=== PATIENT | male | born 1965 | race Caucasian/White ===

== ENCOUNTER 2024-01-28 17:14 | Inpatient (IN) | payer OTHER, SELFPAY ==
[2024-01-28] VITALS (24 sets, daily range): BP systolic 140–164; BP diastolic 100–114; PULSE 80–100; RESP 16; TEMP 36.8; O2SAT 86–100
--- NOTE | ~2024-01-28 | XR_ITS ---
EXAMINATION: XR chest 1V portable DATE: 01/31/2024 07:44 INDICATION: Pneumonia. Septic shock. TECHNIQUE: A single frontal view of the chest was obtained. COMPARISON: Chest single view 01/30/2024, CT abdomen and pelvis 01/28/2024 FINDINGS: The lung volumes are small. There is mild atelectasis in the lower lung zones. No pleural e ffusion or pneumothorax. The heart size is normal. IMPRESSION: 1. Small lung volumes with mild atelectasis in the lower lung zones. Reviewed, dictated and finalized at location E.
--- NOTE | ~2024-01-28 | CT_ITS ---
EXAMINATION: CT brain wo con DATE: 02/01/2024 22:07 INDICATION: garbled speech word salad . TECHNIQUE: Computed tomography (CT) of the head was performed without intravenous contrast. The mA wa s adjusted according to patient size. Iterative reconstruction technique was employed. The dose-lengt h product was 605.33 mGy-cm. COMPARISON: 03/28/2018. FINDINGS: No acute intracranial hemorrhage or extra-axial fluid collection. No hydrocephalus, mass, or herniation. No acute ischemic infarct. Unremarkable dural venous sinus attenuation. No acute osseous abnormality. The aerated spaces are clear. Mild atrophy and chronic white matter change. Atherosclerotic intracranial calcification. IMPRESSION: No acute intracranial process. Reviewed, dictated and finalized at location K.
--- NOTE | ~2024-01-28 | XR_ITS ---
XR chest 1V portable Ordering provider: Jose E Pastor MD History: 58 years Male with . tachycardia . Comparison: March 28, 2018 FINDINGS: MEDIASTINUM: The cardiac silhouette is not enlarged. Slight widening of the superior mediastinum. May be vascular. LUNGS: No effusions or pneumothorax. Opacification and the lung bases suggestive of pneumonia. OTHER: No free air under the diaphragm. IMPRESSION: Bilateral basal pneumonia. Reviewed, dictated and finalized at location A. IMPRESSION: Bilateral basal pneumonia.
--- NOTE | ~2024-01-28 | CT_ITS ---
CT abdomen pelvis w con Ordering provider: Liza Nguyen PA-C History: 58 years Male with . abd pain, flank pain, hx kidney stones . Comparison: March 28, 20002017 Technique: CT abdomen and pelvis with IV and without oral contrast. Radiation reduction technique utilized. DLP 532.9mGy. Findings: VISUALIZED LOWER CHEST: Atelectatic changes in the right lung base. Pneumonitis is not excluded. UPPER ABDOMINAL ORGANS: Liver: Normal. Gallbladder: Normal. Spleen: Normal. Stomach/duodenum: Slightly thickened wall of the stomach. Pancreas: Normal. Adrenals: Normal. Kidneys: Small hypodensity in the right kidney upper pole most likely cyst. Left renal cyst in the le ft kidney upper pole. PELVIC ORGANS: The bladder shows thickened wall. Suprapubic catheter is noted. BOWEL AND MESENTERY: Colon: No evidence of diverticulitis.. Fecal material is impacted in the colon suggestive of constipa tion. No evidence of appendicitis. Small Bowel: Normal. No obstruction. Peritoneum/mesentery: No free air or free fluid. No mesenteric lymphadenopathy. RETROPERITONEUM: Mild atheromatous disease of the abdominal aorta. No retroperitoneal lymphadenopat hy. IVC filter is noted. MUSCULOSKELETAL: Superficial soft tissues: The superficial soft tissues are normal. Device is projected over the left side of the abdomen Bones: Age appropriate degenerative changes of the spine. Bilateral sacroiliacs. Bilateral hip osteoa rthritic changes. IMPRESSION: 1. Right basilar atelectatic changes. 2. Hypodensity in the right kidney upper pole. Follow-up advised. 3. Thickened wall of the bladder with suprapubic catheter. 4. Constipation. Reviewed, dictated and finalized at location A.
--- NOTE | ~2024-01-28 | US_ITS ---
EXAMINATION: US abdomen limited DATE: 01/31/2024 09:09 INDICATION: Abnormal liver function tests. Hyperbilirubinemia. TECHNIQUE: Multiple grayscale and Doppler ultrasound images of the abdomen were obtained. COMPARISON: CT abdomen and pelvis 01/28/2024 FINDINGS: The pancreas is obscured by bowel gas. The liver is normal without focal lesion. There is n ormal flow in main portal vein. There are gallstones in the gallbladder, which is normal in size. Gal lbladder wall thickening is noted. There is no sonographic Veloz's sign. The common duct is normal a nd measures 2 mm. IMPRESSION: 1. Cholelithiasis. Gallbladder wall thickening may be secondary to chronic cholecystitis, chronic robert er disease, or interstitial edema. Reviewed, dictated and finalized at location E. IMPRESSION: 1. Cholelithiasis. Gallbladder wall thickening may be secondary to chronic chol ecystitis, chronic liver disease, or interstitial edema.
--- NOTE | ~2024-01-28 | XR_ITS ---
EXAMINATION: XR chest 1V portable DATE: 02/01/2024 05:12 INDICATION: Pneumonia. TECHNIQUE: A single frontal view of the chest was obtained. COMPARISON: Chest single view 01/31/2024 FINDINGS: The lung volumes are small. There are airspace opacities in all lung zones bilaterally. No pleural effusion or pneumothorax. The heart size is normal. IMPRESSION: 1. Small lung volumes with worsened diffuse lung disease, consistent with atelectasis versus pneumoni a. Reviewed, dictated and finalized at location E. IMPRESSION: 1. Small lung volumes with worsened diffuse lung disease, consistent with atele ctasis versus pneumonia.
--- NOTE | 2024-01-28 17:50 | ED.MALEGU ---
HPI - Male Genitourinary General Chief complaint: Urogenital-Male Stated complaint: catheter pain Time Seen by Provider: 01/28/24 17:16 Source: patient Mode of arrival: EMS Limitations: no limitations History of Present Illness HPI Narrative: This is a 50-year-old male that presents to the emergency department for abdominal discomfort and vomiting. Ongoing over the last couple of days. The pain is constant in nature, intermittently more severe. Also reports pain around his suprapubic catheter and leaking of urine from his penis. Reports irritation of his scrotum. Reports he does not currently have a urologist. Denies fevers. Related Data Allergies Allergy/AdvReac Type Severity Reaction Status Date / Time duloxetine [From Cymbalta] Allergy Unknown Verified 01/28/24 19:00 hydralazine Allergy Unknown Verified 01/28/24 19:00 hydroxyzine Allergy Unknown Verified 01/28/24 19:00 Review of Systems Review of Systems: CONSTITUTIONAL: Denies fever GASTROINTESTINAL: Reports abdominal pain, nausea, vomiting GENITOURINARY: Reports hematuria. All systems reviewed & are unremarkable except as noted in HPI and below PMFSH Past Medical History Medical History (Updated 01/29/24 @ 00:53 by Liza Nguyen PA-C) History of DVT (deep vein thrombosis) History of hypertension History of paraplegia Surgical History Surgical History (Updated 01/28/24 @ 17:55 by Liza Nguyen PA-C) History of suprapubic catheter Social History Social History (Updated 01/28/24 @ 17:55 by Liza Nguyen PA-C) Substance use: former Exam Narrative: GENERAL: Well-appearing, well-nourished, and in no acute distress. HEAD: Normocephalic, atraumatic. EYES: EOMI. ENT: Nares clear, no rhinorrhea or epistaxis. Mucous membranes moist. Oropharynx without tonsillar hypertrophy exudate or other lesions. CHEST: Clear to auscultation. No respiratory distress. No wheezes rales or rhonchi HEART: Regular rate and rhythm. No murmur heard. Normal peripheral pulses. ABDOMEN: Soft, nondistended, normal active bowel sounds. Tender to palpation throughout the low abdomen, without guarding. Suprapubic catheter with urine leaking around catheter EXTREMITIES: No edema. SKIN: Warm, dry. The scrotum is red and moist with papules in the groin. Stage one sacral decubitus ulcer without surrounding erythema or abnormal drainage NEURO: Alert and oriented x3. PSYCH: Normal mood and affect Course Course Emergency Course: patient updated on his workup and recommendation for admission Consultations Consultation #1: Spoke with Dr. Zhang who accepts admission Date: 01/29/24 Vital Signs Vital signs: Vital Signs Temperature 98.2 F 01/28/24 17:15 Pulse Rate 80 01/28/24 17:15 Respiratory Rate 16 01/28/24 17:15 Blood Pressure 158/100 H 01/28/24 17:15 Pulse Oximetry 100 01/28/24 17:15 Oxygen Delivery Room Air 01/28/24 17:15 Temperature 98.2 F 01/28/24 17:15 Pulse Rate 68 01/29/24 00:28 Respiratory Rate 16 01/29/24 00:28 Blood Pressure 153/110 H 01/28/24 23:01 Pulse Oximetry 96 01/29/24 00:28 Oxygen Delivery Nasal Cannula 01/28/24 23:56 Oxygen Flow Rate 2 01/28/24 23:56 Procedures Catheter Insertion (Urinary) Urinary Catheter 1: Date of insertion: 01/28/24 Reason for placing: Yes (replacing chronic catheter) Reason for placing indwelling catheter: Other ( paraplegia, chronic suprapubic catheter) Patient has the following: history of catheter associated urinary tract infection Bladder scan/ultrasound used before catheterization: No Antiseptic solution prep: Povidone-Iodine Topical anesthesia used: Yes Catheter type/location: Suprapubic Size (Portuguese): 20 Catheter balloon size (mL): 10 Catheter balloon amount: 10 Results: successfully catheterized-immediate flow Procedure performed: without complications MDM - Male Genitourinary M
--- NOTE | 2024-01-28 18:15 | PC.NURSE ---
UNABLE TO PLACE IV AFTER 2 ATTEMPTS. SHERRY GARRIDO AWARE AND WILL ATTEMPT ULTRASOUND IV ACCESS
[2024-01-28 19:01] LABS: Alanine Aminotransferase 17 U/L (6-50); Albumin Level 4.4 g/dL (3.5-5.1); Alkaline Phosphatase 78 U/L (38-126); Anion Gap 8 mmol/L (4-12); Aspartate Amino Transferase 27 U/L (17-59); Bilirubin,Total 0.5 mg/dL (0.2-1.3); Blood Urea Nitrogen 10 mg/dL (9-20); Calcium 8.8 mg/dL (8.4-10.2); Carbon Dioxide 26 mmol/L (22-30); Chloride 108 mmol/L (98-107); Estimated CRCL calculation 158 ml/min; Estimated Glomerular Filt Rate > 60; Glucose 129 mg/dL (65-110); Potassium 4.2 mmol/L (3.4-5.0); Sodium 142 mmol/L (137-145)
--- NOTE | 2024-01-28 19:10 | PC.NURSE ---
REPORT TO DOREEN Salazar RN. AWAITING ULTRASOUND RN TO PLACE IV.
[2024-01-28] MEDS: MORPHINE SULFATE (*CRX) 4 MG/ML INJ IV PUSH (19:44)
[2024-01-28] MEDS: ONDANSETRON INJ 4 MG/2 ML VIAL IV PUSH (19:44)
--- NOTE | 2024-01-28 19:44 | PC.NURSE ---
At time of Morphine being given by this RN patient asked numerous questions such as what is the mg that you just gave me of the morphine, when can I have more,etc. This rn educated the patient to the mg he was being given again, and that it was only ordered as a 1 time dose per the er dr's. Pt then made a comment that Are you sure you gave me all of it, i normally get a different feeling from it and i didnt get it. did you given me the full medication?
[2024-01-28 19:53] LABS: Basophils Percent Auto 0.3 % (0.2-1.2); Eosinophils Absolute Auto 0.1 K/mm3 (0-0.3); Eosinophils Percent Auto 1.3 % (0-4.4); Hematocrit 46.2 % (42.0-52.0); Hemoglobin 13.9 g/dL (14.0-18.0); Immature Granulocyte Absolute 0.02 K/mm3 (0.00-0.031); Immature Granulocyte Percent A 0.2 % (0-0.5); Lymphocytes Absolute Auto 1.07 K/mm3 (0.9-3.2); Lymphocytes Percent Auto 11.1 % (18.3-44.2); Mean Corpuscular HGB Conc 30.1 g/dl (32-36); Mean Corpuscular Hemoglobin 24.5 pg (26-34); Mean Corpuscular Volume 81.3 fl (80-100); Mean Platelet Volume 9.2 fl (7.4-10.4); Monocytes Absolute Auto 0.4 K/mm3 (0.1-0.6); Monocytes Percent Auto 4.4 % (2.6-8.5); Neutrophils Percent Auto 82.7 % (45.5-73.1); Platelet Count Result 259 k/mm3 (150-375); Red Blood Count 5.68 M/mm3 (4.6-6.20); Red Cell Distribution Width 17.1 % (11.5-14.5); White Blood Count 9.7 K/mm3 (4.5-10.0)
--- NOTE | 2024-01-28 20:14 | PC.NURSE ---
desire hyde and zan removed catheter that was in place at time of arrival and placed new catheter. DESIRE hyde verbalized that they had approximately 500 ml come out after removing initial catheter and prior to placing new catheter.
[2024-01-28 20:27] LABS: Appearance Urine Clear (Clear); Bacteria Urine Rare /hpf; Bilirubin Urine Negative (Negative); Blood Urine 2+ (Negative); Color Urine Yellow (Yellow); Glucose Urine UA Negative (Negative); Ketones Urine Negative (Negative); Leukocyte Esterase Ur Trace LEU/UL (Negative); Nitrate Urine Negative (Negative); Non Pathogenic Casts 0-2; Protein Urine Negative (Negative); RBC Urine 21-50 /hpf (0-2); Specific Grav Ur 1.015 (1.001-1.035); Squamous Epithelial Cell Urine None Seen /hpf (Few); Urobilinogen Urine 0.2 mg/dL (<2.0); WBC Urine 21-50 /hpf (0-3); pH Urine 6.5 (5.0-9.0)
[2024-01-28 20:31] LABS: Add Urine Microscopic? YES
--- NOTE | 2024-01-28 21:07 | PC.NURSE ---
Pt taken to ct at this time via stretcher. Pharmacy sending up abx via tube station.
[2024-01-28] MEDS: MEROPENEM 1 GM/NS 100 ML 1 GM/100 ML BAG IVPB (21:16)
[2024-01-28] MEDS: PHENAZOPYRIDINE HCL 100 MG TABLET 200 MG PO (23:02)
--- NOTE | 2024-01-28 23:11 | PM.IMHP ---
H&P: HPI History of Present Illness Date/Time: 01/28/24 23:11 Chief Complaint: n/v Narrative: This is a 58-year-old male with past medical history significant for paraplegia, chronic suprapubic catheter, shelter resident. Patient was brought to the emergency room for evaluation due to nausea, vomiting, ostomy pain, leaking urine through the penis. Preliminary workup was significant for urinalysis with numerous WBCs present. Patient has been admitted for further evaluation management and treatment. CT abdomen pelvis w con Ordering provider: Liza Nguyen PA-C History: 58 years Male with . abd pain, flank pain, hx kidney stones . Comparison: March 28, 20002017 Technique: CT abdomen and pelvis with IV and without oral contrast. Radiation reduction technique utilized. DLP 532.9mGy. Findings: VISUALIZED LOWER CHEST: Atelectatic changes in the right lung base. Pneumonitis is not excluded. UPPER ABDOMINAL ORGANS: Liver: Normal. Gallbladder: Normal. Spleen: Normal. Stomach/duodenum: Slightly thickened wall of the stomach. Pancreas: Normal. Adrenals: Normal. Kidneys: Small hypodensity in the right kidney upper pole most likely cyst. Left renal cyst in the left kidney upper pole. PELVIC ORGANS: The bladder shows thickened wall. Suprapubic catheter is noted. BOWEL AND MESENTERY: Colon: No evidence of diverticulitis.. Fecal material is impacted in the colon suggestive of constipation. No evidence of appendicitis. Small Bowel: Normal. No obstruction. Peritoneum/mesentery: No free air or free fluid. No mesenteric lymphadenopathy. RETROPERITONEUM: Mild atheromatous disease of the abdominal aorta. No retroperitoneal lymphadenopathy. IVC filter is noted. MUSCULOSKELETAL: Superficial soft tissues: The superficial soft tissues are normal. Device is projected over the left side of the abdomen Bones: Age appropriate degenerative changes of the spine. Bilateral sacroiliacs. Bilateral hip osteoarthritic changes. IMPRESSION: 1. Right basilar atelectatic changes. 2. Hypodensity in the right kidney upper pole. Follow-up advised. 3. Thickened wall of the bladder with suprapubic catheter. 4. Constipation. Review of Systems Review of Systems: Nausea, vomiting, ostomy pain, urine leakage Constitutional: Constitutional: Reports chills, Reports malaise, Reports night sweats and Reports poor appetite Eyes: Eyes: Denies change in vision ENT: Denies dysphagia and Denies odynophagia Cardiovascular: Cardiovascular: Denies chest pain, Denies irregular heart rhythm and Denies palpitations Respiratory: Respiratory: Denies cough and Denies excessive phlegm production Gastrointestinal: Gastrointestinal: Reports abdominal pain, Reports diarrhea, Reports nausea and Reports vomiting Genitourinary: Genitourinary: Reports urinary incontinence Musculoskeletal: Musculoskeletal: Reports other ( paraplegia) Integumentary/Breasts: Skin/Breast: Denies rash Neurologic: Reports other ( patient has paraplegia) Psychiatric: Psychiatric: Reports no additional psychiatric complaints and Reports as per HPI Endocrine: Endocrine: Denies cold intolerance, Denies heat intolerance, Denies polyphagia, Denies polydipsia, Denies polyuria and Denies palpitations Hematologic/Lymphatic: Hematologic/Lymphatic: Reports no additional hematologic/lymphatic complaints and Reports as per HPI Allergic/Immunologic: Allergic/Immunologic: Reports no additional allergic/immunologic complaints and Reports as per HPI PMF Past Medical History Medical History (Updated 01/29/24 @ 00:53 by Liza Nguyen PA-C) History of DVT (deep vein thrombosis) History of hypertension History of paraplegia Surgical History Surgical History (Updated 01/28/24 @ 17:55 by Liza Nguyen PA-C) History of suprapubic catheter Family History Family History (Updated 01/29/24 @ 01:05 by Ryan Elizabeth RN) Other Family history non-co
[2024-01-28] MEDS: HYDROmorphone HCL INJ (*CRX) 1 MG/ML SYR IV PUSH (23:41)
--- NOTE | 2024-01-28 23:41 | PC.NURSE ---
This rn and another rn Fracisco went into the patient room to medication, change the linens and reposition the patient. Patient again asked multiple times what the mg was of the medication that he was being given, and also made multiple comments along the lines of Did you even give me the medication, are you sure it was 1mg? I normally only get 0.5mg and i feel that. I did not feel that at all this time. Pt was closing his eyes and looking relaxed during this conversation. Pt also did have his oxygen desat to the 86% and needed to be placed on 2lnc.
--- NOTE | 2024-01-28 23:54 | PC.NURSE ---
Pt linens changed at this time. Pt repositioned to his left side for comfort.
[2024-01-29] VITALS (8 sets, daily range): BP systolic 123–140; BP diastolic 80–87; PULSE 68–103; RESP 16–18; TEMP 36.4–36.9; O2SAT 90–96
--- NOTE | 2024-01-29 00:45 | ADMGEN ---
This patient, Evgeny York, was admitted to Medical Room 253-01. Patient/family oriented to hospital policies and general routines including ID bracelet, bed and alarms, visiting hours, pain management, procedures, bathroom and other care routines, personal items, smoking policy, room service/diet, and visiting hours. Information on how to activate the Rapid Response Team has been discussed. Patient/Family are encouraged to report perceived risks to care and to ask questions if they do not understand what they are told or what they should do.
[2024-01-29] MEDS: BISACODYL 10 MG SUPPOSITORY RECTAL ×2 (02:30→15:47)
[2024-01-29] MEDS: ZOLPIDEM TARTRATE (*CRX) 5 MG TABLET 10 MG PO ×2 (02:30→21:30)
[2024-01-29] MEDS: QUEtiapine FUMARATE 25 MG TABLET 50 MG PO ×2 (02:30→20:39)
[2024-01-29] MEDS: GABAPENTIN 300 MG CAPSULE 900 MG PO ×2 (02:30→20:39)
[2024-01-29] MEDS: LORazepam (*CRX) 0.5 MG TABLET PO ×2 (02:32→17:09)
[2024-01-29] MEDS: MEROPENEM 1 GM/NS 100 ML 1 GM/100 ML BAG IVPB ×3 (05:54→21:31)
[2024-01-29] MEDS: amLODIPine BESYLATE 5 MG TABLET 10 MG PO (08:56)
[2024-01-29] MEDS: calcium polycarbophiL 625 MG TABLET PO (08:57)
[2024-01-29] MEDS: APIXABAN 5 MG TABLET PO ×2 (08:57→17:09)
[2024-01-29] MEDS: LACTULOSE 20 GM/30 ML UDC 30 GM PO ×3 (08:58→17:12)
[2024-01-29] MEDS: carvediloL 12.5 MG TABLET PO ×2 (08:58→20:40)
[2024-01-29] MEDS: LINACLOTIDE 72 MCG CAPSULE PO (08:58)
[2024-01-29] MEDS: MIRABEGRON 50 MG ER TABLET PO (08:59)
[2024-01-29] MEDS: TOLTERODINE TARTRATE 2 MG TABLET PO ×2 (08:59→20:41)
[2024-01-29] MEDS: SENNOSIDES 8.6 MG TABLET 17.2 MG PO ×2 (09:00→17:09)
--- NOTE | 2024-01-29 14:22 | PC.NURSE ---
Patient frequently states they are in pain. When RN goes to room, patient is requesting Dilaudid. Provider requesting patient to continue with medications currently prescribed and what they are taking at the facility. When RN attempts to offer pain medication currently ordered, patient refuses. Provider aware.
--- NOTE | 2024-01-29 14:26 | PM.IMPN ---
Progress Note: A&P Assessment and Plan (1) Acute UTI: Code(s): N39.0 - Urinary tract infection, site not specified Status: Acute Assessment and Plan: Meropenem started 01/27 Cultures pending (2) Chronic back pain: Code(s): M54.9 - Dorsalgia, unspecified; G89.29 - Other chronic pain Status: Acute Assessment and Plan: At baseline Continue facility regimen 01/28 AM analgesics held due to excessive sedation and lateness of his PM meds 01/27 (3) Paraplegia: Code(s): G82.20 - Paraplegia, unspecified Status: Acute Assessment and Plan: Chronic (4) Bladder spasms: Code(s): N32.89 - Other specified disorders of bladder Status: Acute Assessment and Plan: Add mirabegron Subjective Date/time seen: 01/29/24 14:26 Interval history: Sleeping when I arrived to interview him. Chronic back pain. Has epidural baclofen pump. Main pain today is bladder region. States he leak sometimes and it ?feels as if I am passing a kidney stone ?. Denied chest pain or shortness of breath. Chronic lower extremity weakness. Chronic stinging and burning in the lower extremities. No change. Chronic constipation. Denied bleeding. Review of Systems Review of Systems: HEENT: PERRL, sclerae nonicteric, pharyngeal mucosa pink and intact NECK: No JVD, adenopathy, or thyromegaly CHEST: Clear to auscultation. Normal effort. HEART: NL S1/S2, regular, no murmur ABDOMEN: BS+, soft, nontender, no mass, no bruits EXTREMITIES: No cyanosis, edema, or clubbing NEUROLOGIC: CN intact and symmetric to inspection. MUSCULOSKELETAL: Tone and strength symmetric in upper extremities, 0/5 lower extremities. PSYCH: Drowsy but arouses very easily. Oriented to person, place, and time. All systems reviewed & are unremarkable except as noted in HPI and below Objective Data Vital Signs Vital Signs: Vital Signs - 24 hr 01/28/24 17:15 01/28/24 17:45 01/28/24 19:48 Temperature 98.2 F Pulse Rate 80 100 Respiratory Rate 16 16 Blood Pressure 158/100 H 164/103 H Pulse Oximetry 100 97 89 L Oxygen Delivery Room Air Oxygen Flow Rate 01/28/24 20:01 01/28/24 20:16 01/28/24 20:27 Temperature Pulse Rate Respiratory Rate Blood Pressure 160/103 H 159/111 H Pulse Oximetry 91 91 92 Oxygen Delivery Oxygen Flow Rate 01/28/24 20:31 01/28/24 20:33 01/28/24 20:45 Temperature Pulse Rate Respiratory Rate Blood Pressure 161/107 H Pulse Oximetry 91 89 L 91 Oxygen Delivery Oxygen Flow Rate 01/28/24 20:46 01/28/24 23:56 01/28/24 23:56 Temperature Pulse Rate Respiratory Rate Blood Pressure 140/103 H Pulse Oximetry 91 86 L 96 Oxygen Delivery Room Air Nasal Cannula Oxygen Flow Rate 2 01/28/24 21:39 01/28/24 21:45 01/28/24 21:46 Temperature Pulse Rate Respiratory Rate Blood Pressure 150/102 H Pulse Oximetry 93 91 90 Oxygen Delivery Oxygen Flow Rate 01/28/24 22:01 01/28/24 22:02 01/28/24 22:15 Temperature Pulse Rate Respiratory Rate Blood Pressure 155/114 H Pulse Oximetry 89 L 88 L 89 L Oxygen Delivery Oxygen Flow Rate 01/28/24 22:16 01/28/24 22:30 01/28/24 22:31 Temperature Pulse Rate Respiratory Rate Blood Pressure 155/110 H 163/109 H Pulse Oximetry 90 87 L 91 Oxygen Delivery Oxygen Flow Rate 01/28/24 22:45 01/28/24 22:46 01/28/24 23:01 Temperature Pulse Rate Respiratory Rate Blood Pressure 157/109 H 153/110 H Pulse Oximetry 93 90 90 Oxygen Delivery Oxygen Flow Rate 01/28/24 23:30 01/29/24 00:28 01/29/24 00:49 Temperature 98.4 F Pulse Rate 68 90 Respiratory Rate 16 18 Blood Pressure 140/83 Pulse Oximetry 89 L 96 90 Oxygen Delivery Oxygen Flow Rate 01/29/24 05:45 01/29/24 08:58 01/29/24 13:34 Temperature 97.6 F 98.4 F Pulse Rate 86 80 84 Respiratory Rate 18 16 Blood Pressure 135/87 123/80 Pulse
[2024-01-29] MEDS: traMADol HCL (*CRX) 50 MG TABLET 100 MG PO ×2 (15:08→20:41)
[2024-01-29] MEDS: LIDOCAINE 5% PATCH 2 PATCH TOPICAL (15:47)
[2024-01-29] MEDS: TIZANIDINE HCL 4 MG TABLET PO (20:39)
[2024-01-29] MEDS: MELATONIN 3 MG TABLET PO (20:39)
[2024-01-30] VITALS (25 sets, daily range): BP systolic 66–129; BP diastolic 40–88; PULSE 72–160; RESP 13–23; TEMP 35.6–37.4; O2SAT 87–100
[2024-01-30] MEDS: traMADol HCL (*CRX) 50 MG TABLET 100 MG PO (03:32)
[2024-01-30 04:57] LABS: Hematocrit 45.4 % (42.0-52.0); Hemoglobin 12.7 g/dL (14.0-18.0); Mean Corpuscular Hemoglobin 24.7 pg (26-34); Mean Corpuscular Volume 88.3 fl (80-100); Mean Platelet Volume 9.4 fl (7.4-10.4); Platelet Count Result 153 k/mm3 (150-375); Red Blood Count 5.14 M/mm3 (4.6-6.20); Red Cell Distribution Width 16.9 % (11.5-14.5); White Blood Count 3.7 K/mm3 (4.5-10.0)
[2024-01-30 05:10] LABS: Anion Gap 8 mmol/L (4-12); Blood Urea Nitrogen 16 mg/dL (9-20); Calcium 8.6 mg/dL (8.4-10.2); Carbon Dioxide 26 mmol/L (22-30); Chloride 103 mmol/L (98-107); Estimated CRCL calculation 129 ml/min; Estimated Glomerular Filt Rate > 60; Glucose 93 mg/dL (65-110); Potassium 4.2 mmol/L (3.4-5.0); Sodium 137 mmol/L (137-145)
[2024-01-30] MEDS: BACLOFEN 10 MG TABLET 20 MG PO ×2 (06:21→23:34)
[2024-01-30] MEDS: HYDROmorphone HCL INJ (*CRX) 1 MG/ML SYR 2 MG SUB-Q (07:32)
[2024-01-30] MEDS: MEROPENEM 1 GM/NS 100 ML 1 GM/100 ML BAG IVPB (08:34)
[2024-01-30] MEDS: APIXABAN 5 MG TABLET PO (08:35)
[2024-01-30] MEDS: SENNOSIDES 8.6 MG TABLET 17.2 MG PO (08:36)
[2024-01-30] MEDS: LORazepam (*CRX) 0.5 MG TABLET PO (08:36)
[2024-01-30] MEDS: carvediloL 12.5 MG TABLET PO (08:37)
[2024-01-30] MEDS: calcium polycarbophiL 625 MG TABLET PO (08:37)
[2024-01-30] MEDS: MIRABEGRON 50 MG ER TABLET PO (08:37)
[2024-01-30] MEDS: AMITRIPTYLINE HCL 25 MG TABLET 100 MG PO (08:37)
[2024-01-30] MEDS: TOLTERODINE TARTRATE 2 MG TABLET PO ×2 (08:37→20:58)
[2024-01-30] MEDS: amLODIPine BESYLATE 5 MG TABLET 10 MG PO (08:37)
[2024-01-30] MEDS: GABAPENTIN 300 MG CAPSULE 900 MG PO (08:38)
[2024-01-30] MEDS: LACTULOSE 20 GM/30 ML UDC 30 GM PO (08:38)
[2024-01-30] MEDS: LINACLOTIDE 72 MCG CAPSULE PO (08:38)
--- NOTE | 2024-01-30 10:11 | PM.IMPN ---
Progress Note: A&P Assessment and Plan (1) Acute UTI: Code(s): N39.0 - Urinary tract infection, site not specified Status: Acute Assessment and Plan: Meropenem started 01/27 01/29 Enterococcus growing in culture, switched from meropenem to ampicillin (2) Chronic back pain: Code(s): M54.9 - Dorsalgia, unspecified; G89.29 - Other chronic pain Status: Acute Assessment and Plan: At baseline Continue facility regimen 01/28 AM analgesics held due to excessive sedation and lateness of his PM meds 01/27 01/29 started oxycodone and hydromorphone prn for intermittent, severe penile pain (3) Paraplegia: Code(s): G82.20 - Paraplegia, unspecified Status: Acute Assessment and Plan: Chronic (4) Bladder spasms: Code(s): N32.89 - Other specified disorders of bladder Status: Acute Assessment and Plan: On mirabegron (5) Constipation due to opioid therapy: Code(s): K59.03 - Drug induced constipation; T40.2X5A - Adverse effect of other opioids, initial encounter Status: Acute Assessment and Plan: 01/29 Methylnaltexone and SS enemas ordered Subjective Date/time seen: 01/30/24 10:11 Interval history: C/o constipation with associated n/v. Has experienced multiple times in past and resolved with enemas. C/o severe pain in penis whenever his urine 'leaks out.' Review of Systems Review of Systems: All systems reviewed & are unremarkable except as noted in HPI and below Exam Narrative: GENERAL: Chronically ill appearing, anxious, diaphoretic HEAD: Normocephalic, atraumatic. EYES: PERRL. Sclerae nonicteric. ENT: Nares clear. CHEST: Clear to auscultation. No respiratory distress. No wheezes rales or rhonchi HEART: Regular rate and rhythm. No murmur heard. Tachycardic. ABDOMEN: Soft, mildly distended but soft, normal active bowel sounds. Nontender. No mass. Suprapubic catheter in place. EXTREMITIES: No edema. SKIN: Diaphoretic. NEURO: CN 3-12 symmetric to visual inspection. LE 0/5 strength. PSYCH: Anxious. Alert and oriented x3. Objective Data Vital Signs Vital Signs: Vital Signs - 24 hr 01/29/24 13:34 01/29/24 19:38 01/29/24 20:40 Temperature 98.4 F 98.1 F Pulse Rate 84 103 H 103 H Respiratory Rate 16 18 Blood Pressure 123/80 137/80 Pulse Oximetry 96 92 01/30/24 03:53 01/30/24 08:52 01/30/24 09:33 Temperature 96.1 F L 98.4 F 98.5 F Pulse Rate 72 160 H 155 H Respiratory Rate 20 21 H 20 Blood Pressure 129/88 98/64 L Pulse Oximetry 100 93 91 Intake/Output Intake/Output: Intake & Output 01/27/24 01/28/24 01/29/24 01/30/24 23:59 23:59 23:59 23:59 Intake Total 100 1190 240 Output Total 1100 1990 100 Balance -1000 -800 140 Meds/Results Medications: Active Medications Generic Name Dose Route Start Last Admin Trade Name Freq PRN Reason Stop Dose Admin Acetaminophen 1,000 mg 01/29/24 04:27 Acetaminophen 500 Mg Tablet BY MOUTH TID PRN Pain (Scale Score 1-3) Amitriptyline HCl 100 mg 01/29/24 09:00 01/30/24 08:37 Amitriptyline Hcl 25 Mg Tablet PO 100 mg DAILY JAYY Administration Amlodipine Besylate 10 mg 01/29/24 09:00 01/30/24 08:37 Amlodipine Besylate 5 Mg Tablet PO 10 mg DAILY JAYY Administration Apixaban 5 mg 01/29/24 09:00 01/30/24 08:35 Apixaban 5 Mg Tablet PO 5 mg BID JAYY Administration Artificial Tears 1 drop 01/29/24 04:26 Artificial Tears Ophth Soln 15 Ml Bottle EACH EYE BID PRN Dry Eye(s) Baclofen 20 mg 01/29/24 03:49 01/30/24 06:21 Baclofen 10 Mg Tablet PO 20 mg TID PRN Administration MUSCLE SPASMS Bisacodyl 10 mg 01/29/24 04:27 01/29/24 15:47 Bisacodyl 10 Mg Suppository RECTAL 10 mg DAILY PRN Administration Constipation Calcium Polycarbophil 625 mg 01/29/24 09:00 01/30/24 08:37 Calcium Polycarbophil 625 Mg Tablet PO 625 mg DAILY JAYY Administration Carvedilol 12.5 mg 0
[2024-01-30] MEDS: AMPICILLIN 1 GM/NS 50 ML 1 GM/50 ML BAG IVPB (12:07)
[2024-01-30] MEDS: PROMETHAZINE HCL 25 MG/ML AMPUL IM (12:08)
[2024-01-30] MEDS: METHYLNALTREXONE 12 MG/0.6 ML VIAL SUB-Q (12:08)
[2024-01-30] MEDS: HYDROmorphone HCL INJ (*CRX) 1 MG/ML SYR IV PUSH (12:09)
[2024-01-30] MEDS: LIDOCAINE HCL 2% GEL UROJET 10 ML PKG MUCOUS MEM (14:46)
[2024-01-30] MEDS: SODIUM CHLORIDE 0.9% IV 1,000 ML 999 ML IV CONT ×2 (14:50→16:03)
--- NOTE | 2024-01-30 14:56 | ECG_ITS ---
Test Date: 2024-01-30 15:15:29 Measurements Intervals Morrison Rate: 110 P: 25 NE: 162 QRS: -8 QRSD: 106 T: 29 QT: 313 QTc: 424 Interpretive Statements SINUS TACHYCARDIA No previous ECG available for comparison Electronically Signed On 02-01-2024 11:39:18 CDT by Fox Noel M.D.
[2024-01-30 15:28] LABS: Alveolar/Arterial O2 Gradient 214.4 mmHg; Fractional Inspired Oxygen 38 %; HCO3 ABG 23.7 mEq/l (22.0-26.0); Oxygen Content ABG 15.9 %vol (16.0-22.0); Oxygen Saturation ABG 90.4 % (95.0-100.0); Oxyhemoglobin 89.6 % THb (90.0-100.0); PCO2 ABG 44.5 mmHg (35.0-45.0); PO2 ABG 61.8 mmHg (80.0-100.0); PO2 FiO2 Ratio Arterial Blood 1.63 %; Total Hemoglobin 12.6 g/dL (12.0-18.0); pH ABG 7.345 (7.350-7.450)
[2024-01-30 15:29] LABS: Device NASAL CANNULA; Liters per Minute 4.5 LPM; Modified Allen's Test Pass; Site Drawn RIGHT RADIAL
[2024-01-30] MEDS: NALOXONE HCL 0.4 MG/ML VIAL IV PUSH (16:09)
--- NOTE | 2024-01-30 16:26 | P.ENSEP_ITS ---
Severe Sepsis Evaluation Initial hypotension due to sepsis/infection: SBP < 90 mmHg and MAP < 65 mmHg Persistent hypotension after fluid resuscitation: SBP < 90 mmHg and MAP < 65 mmHg Possible source: pulmonary and genitourinary Current stage of sepsis: septic shock Date sepsis identified: 01/30/24 Time sepsis identified: 16:27 If septic shock, document one of the following three assessments within 6 hrs of determining septic shock. 1) Review of Systems Sepsis re-evaluation: Sepsis re-evaluation was performed. (after fluid bolus, remained hypotensive) Date ROS was performed: 01/30/24 Time ROS was performed: 16:28 2) Focused Exam Need to answer all in this section. Vital signs: Vital Signs Temp Pulse Resp BP Pulse Ox O2 Del Method O2 Flow Rate 01/30/24 08:25 91 Nasal Cannula 2 01/30/24 09:33 98.5 F 155 H 20 98/64 L 91 01/30/24 08:52 98.4 F 160 H 21 H 93 BP 65/40 Respiratory exam: Present decreased breath sounds (bases) Cardiovascular exam: tachycardia Capillary refill: > 2 Seconds Peripheral pulse strength: 2+ Slightly Diminished Peripheral pulse location: Radial Skin exam: diaphoretic Date exam was performed: 02/04/24 Time exam was performed: 11:12 3) Bedside Monitoring Fluid challenge response: not fluid responsive Date bedside monitoring was performed: 02/04/24 Time bedside monitoring was performed: 11:12 Problem List (1) Septic shock: Code(s): A41.9 - Sepsis, unspecified organism; R65.21 - Severe sepsis with septic shock Status: Acute Plan * Linezolid, cefepime * Repeat labs * Blood cultures * ICU for possible pressors
[2024-01-30 16:28] LABS: Glucose Point of Care 121 mg/dl (65-105)
[2024-01-30 16:30] LABS: Amphetamine Screen Urine Negative (Negative); Barbiturate Screen Urine Negative (Negative); Benzodiazepines Screen Urine Negative (Negative); Cannabinoid Screen Urine Negative (Negative); Cocaine Screen Urine Negative (Negative); Methadone Screen Urine Negative (Negative); Opiate Screen Urine Positive (Negative); Phencyclidine Screen Urine Negative (Negative)
[2024-01-30 17:21] LABS: Basophils Absolute Auto 0.1 K/mm3 (0.0-0.1); Basophils Percent Auto 0.5 % (0.2-1.2); Eosinophils Absolute Auto 0.2 K/mm3 (0-0.3); Eosinophils Percent Auto 1.4 % (0-4.4); Hematocrit 38.2 % (42.0-52.0); Hemoglobin 11.4 g/dL (14.0-18.0); Immature Granulocyte Absolute 0.05 K/mm3 (0.00-0.031); Immature Granulocyte Percent A 0.5 % (0-0.5); Lymphocytes Absolute Auto 0.17 K/mm3 (0.9-3.2); Lymphocytes Percent Auto 1.6 % (18.3-44.2); Mean Corpuscular HGB Conc 29.8 g/dl (32-36); Mean Corpuscular Hemoglobin 24.8 pg (26-34); Mean Platelet Volume 9.7 fl (7.4-10.4); Monocytes Absolute Auto 0.1 K/mm3 (0.1-0.6); Neutrophils Absolute Auto 9.9 K/mm3 (1.3-6.7); Platelet Count Result 170 k/mm3 (150-375); Red Cell Distribution Width 17.2 % (11.5-14.5); White Blood Count 10.4 K/mm3 (4.5-10.0)
[2024-01-30] MEDS: NOREPINEPHRINE 8 MG/D5W 250 ML 8 MG/250 ML BAG 9.38 MG IV CONT (17:30)
[2024-01-30 17:31] LABS: Lactic Acid Reflex 3.9 mmol/L (0.7-2.0)
[2024-01-30 17:36] LABS: Anisocytosis 1+; Hypochromasia 1+; Ovalocytes 1+; Platelet Estimate Adequate (Adequate); Schistocytes None Seen
[2024-01-30 17:37] LABS: Albumin Level 3.3 g/dL (3.5-5.1); Alkaline Phosphatase 119 U/L (38-126); Anion Gap 7 mmol/L (4-12); Aspartate Amino Transferase 470 U/L (17-59); Bilirubin,Total 1.7 mg/dL (0.2-1.3); Blood Urea Nitrogen 25 mg/dL (9-20); Calcium 8.1 mg/dL (8.4-10.2); Carbon Dioxide 27 mmol/L (22-30); Chloride 101 mmol/L (98-107); Estimated CRCL calculation 44 ml/min; Estimated Glomerular Filt Rate 45; Glucose 80 mg/dL (65-110); Magnesium 1.5 mg/dL (1.6-2.3); Phosphorus 3.2 mg/dL (2.5-4.5); Potassium 3.7 mmol/L (3.4-5.0); Sodium 135 mmol/L (137-145)
--- NOTE | 2024-01-30 17:41 | P.PCNBED_ITS ---
Procedures Central Line Placement Right Femoral: Central Line Date: 01/30/24 Central Line Time: 17:15 Discussed w/ the patient/family/POA,the placement of a central venous catheter, including its clinical necessity/indication & associated potential risks, benifits and alternatives.: Yes The patient/family/POA understand(s) and acknowledge(s) the need to proceed with central venous catheter insertion as an important element of the patient's clinical management.: Yes Consent: I have discussed with the patient and/or surrogate, the non-emergent placement of a central venous catheter, including its clinical necessity/indication and associated potential risks and complications. The patient and/or surrogate understand(s) and acknowledge(s) the need to proceed with central venous catheter insertion as an important element of the patient's clinical management. Time Out Performed: Yes Patient Position: supine Patient placed on monitor/pulse ox: Yes Provider Prep: mask, sterile gown, sterile gloves, Max. sterile barrier precautions, cap and hand hygiene with conventional soap/water or alcohol based hand rub Central line prep: 2% Chlorhexidine scrub Local anesthesia used: lidocaine 1% Amount of anesthesia used (ml): 5 Sterile US Technique with sterile gel/sterile probe covers: Yes Central line lumen inserted: triple Guatemalan: 7 Length (cm): 20 Post Procedure: sutured in place, good blood return, all ports aspirated, flushed, capped, transparent dressing, antimicrobial product, securement product and aseptic technique maintained throughout procedure Post procedure x-ray: other (n/a with femoral placement)
[2024-01-30] MEDS: CEFEPIME 1 GM/NS 50 ML 1 GM/50 ML BAG IVPB (17:49)
[2024-01-30] MEDS: LINEZOLID 600 MG/300 ML 600 MG/300 ML SOLN 300 MG IVPB (17:50)
[2024-01-30 17:56] LABS: Alanine Aminotransferase 179 U/L (6-50); Troponin I 0.961 ng/mL (0.000-0.034)
[2024-01-30 19:51] LABS: MRSA (PCR) DETECTED (NOT DETECTE)
[2024-01-30 20:14] LABS: Reflex Lactic Acid Yes or No Add Lactic
--- NOTE | 2024-01-30 20:16 | PC.NURSE ---
This patient, Evgeny York, was transferred to ICU-2 on 01/30/24 at 1625. Personal belongings sent with patient. Report given to Gilda GARRIDO. Appropriate documentation sent with patient.
[2024-01-30] MEDS: VASOPRESSIN INJ 100 UNITS in DEXTROSE 5% 95 ML IV CONT (20:27)
[2024-01-30] MEDS: LIDOCAINE 5% PATCH 2 PATCH TOPICAL (20:28)
[2024-01-30] MEDS: ALBUMIN HUMAN 25% 25 GM/100 ML 100 ML IVPB (20:29)
[2024-01-30 20:44] LABS: Lactic Acid Reflex 3.4 mmol/L (0.7-2.0)
[2024-01-30] MEDS: QUEtiapine FUMARATE 25 MG TABLET 50 MG PO (20:58)
[2024-01-30] MEDS: MELATONIN 3 MG TABLET PO (20:58)
[2024-01-30 21:12] LABS: Troponin I 0.766 ng/mL (0.000-0.034)
[2024-01-30] MEDS: LACTATED RINGERS 1,000 ML 75 ML IV CONT (21:40)
[2024-01-30] MEDS: CENTRAL LINE FLUSH 10 ML IV PUSH (21:40)
[2024-01-30] MEDS: HYDROCORTISONE SODIUM SUCCINATE 100 MG/2 ML VIAL IV PUSH (21:40)
[2024-01-30] MEDS: oxyCODONE HCL (*CRX) 5 MG TAB IR PO (21:47)
--- NOTE | 2024-01-30 23:27 | PC.NURSE ---
Patient pulled off end of J-loop on peripheral IV. Replaced J-loop and flushed IV with good results. Patient had also unscrewed the IV tubing for his vasopressin. Reiterated importance of the medication and to leave his IV stuff alone.
[2024-01-31] VITALS (56 sets, daily range): BP systolic 72–123; BP diastolic 52–91; PULSE 88–106; RESP 8–19; TEMP 36.4–37.5; O2SAT 90–94; BMI 22.6
[2024-01-31 00:02] LABS: Troponin I 0.529 ng/mL (0.000-0.034)
[2024-01-31] MEDS: ALBUMIN HUMAN 25% 25 GM/100 ML 100 ML IVPB ×3 (00:05→12:42)
[2024-01-31] MEDS: NOREPINEPHRINE 8 MG/D5W 250 ML 8 MG/250 ML BAG 39.38 MG IV CONT (00:39)
[2024-01-31] MEDS: CEFEPIME 1 GM/NS 50 ML 1 GM/50 ML BAG IVPB (03:51)
[2024-01-31] MEDS: oxyCODONE HCL (*CRX) 5 MG TAB IR PO (04:07)
[2024-01-31] MEDS: LINEZOLID 600 MG/300 ML 600 MG/300 ML SOLN 300 MG IVPB ×2 (05:48→17:12)
[2024-01-31] MEDS: HYDROCORTISONE SODIUM SUCCINATE 100 MG/2 ML VIAL IV PUSH ×3 (05:48→21:33)
[2024-01-31] MEDS: CENTRAL LINE FLUSH 10 ML IV PUSH ×3 (05:49→21:33)
[2024-01-31] MEDS: CENTRAL LINE FLUSH 20 ML IV PUSH (05:49)
[2024-01-31 07:11] LABS: Hematocrit 32.6 % (42.0-52.0); Hemoglobin 9.9 g/dL (14.0-18.0); Immature Platelet Fraction Pct 6.6 % (0.9-11.2); Mean Corpuscular HGB Conc 30.4 g/dl (32-36); Mean Corpuscular Hemoglobin 24.8 pg (26-34); Mean Corpuscular Volume 81.5 fl (80-100); Platelet Count Result 129 k/mm3 (150-375); Red Cell Distribution Width 16.7 % (11.5-14.5); White Blood Count 20.2 K/mm3 (4.5-10.0)
[2024-01-31 07:19] LABS: Alanine Aminotransferase 143 U/L (6-50); Albumin Level 3.9 g/dL (3.5-5.1); Alkaline Phosphatase 94 U/L (38-126); Anion Gap 6 mmol/L (4-12); Aspartate Amino Transferase 209 U/L (17-59); Bilirubin,Total 3.5 mg/dL (0.2-1.3); Blood Urea Nitrogen 23 mg/dL (9-20); Calcium 7.9 mg/dL (8.4-10.2); Carbon Dioxide 28 mmol/L (22-30); Chloride 96 mmol/L (98-107); Estimated CRCL calculation 84 ml/min; Estimated Glomerular Filt Rate > 60; Glucose 194 mg/dL (65-110); Magnesium 1.4 mg/dL (1.6-2.3); Potassium 4.1 mmol/L (3.4-5.0); Sodium 130 mmol/L (137-145)
--- NOTE | 2024-01-31 08:18 | WPDCNINT ---
Assessment and Plan Assessment and plan (1) Septic shock: Code(s): A41.9 - Sepsis, unspecified organism; R65.21 - Severe sepsis with septic shock Status: Acute Assessment and Plan: 01/30/2024 patient was transfer from medical floor for hypotension refractory to 2 L IV fluid bolus, right femoral central line was inserted and patient was started on Levophed. Vasopressin was later added. -VRE UTI and possible aspiration pneumonia as patient did have an emesis on 01/29 -OFF vasopressin -continue Levophed to maintain MAP > 65 mmHg for adequate end organ perfusion -patient on stress dose steroids -albumin x4 doses for intravascular volume depletion -01/28/2024: Urine culture growing VRE -01/30/2024: Blood cultures obtained and pending -continue linezolid (01/29), -discontinue cefepime and start Zosyn (01/30) for aspiration pneumonia pneumonitis (2) Acute UTI: Code(s): N39.0 - Urinary tract infection, site not specified Status: Acute Assessment and Plan: UTI, cultures and antibiotics as above (3) Chronic back pain: Code(s): M54.9 - Dorsalgia, unspecified; G89.29 - Other chronic pain Status: Acute Assessment and Plan: Patient has chronic back pain, continue oxycodone -patient also has a baclofen -continue amitriptyline and gabapentin (4) Bladder spasms: Code(s): N32.89 - Other specified disorders of bladder Status: Acute Assessment and Plan: Continue tolterodine, Mirabegron (5) Constipation due to opioid therapy: Code(s): K59.03 - Drug induced constipation; T40.2X5A - Adverse effect of other opioids, initial encounter Status: Acute Assessment and Plan: Patient on senna S, MiraLax, lactulose, -will give soapsuds enema, patient normally gets that for constipation (6) Paraplegia: Code(s): G82.20 - Paraplegia, unspecified Status: Acute Assessment and Plan: Chronic, (7) Elevated LFTs: Code(s): R79.89 - Other specified abnormal findings of blood chemistry Status: Acute Assessment and Plan: Elevated LFTs and bilirubin could be related to severe hypotension, decreased perfusion, shock liver -obtain right upper quadrant ultrasound and hepatitis panel to rule out any liver or gallbladder pathology (8) Electrolyte imbalance: Code(s): E87.8 - Other disorders of electrolyte and fluid balance, not elsewhere classified Status: Acute Assessment and Plan: Will replace magnesium and calcium (9) History of DVT (deep vein thrombosis): Code(s): Z86.718 - Personal history of other venous thrombosis and embolism Status: Acute Assessment and Plan: Continue Eliquis (10) History of hypertension: Code(s): Z86.79 - Personal history of other diseases of the circulatory system Status: Acute Assessment and Plan: Will hold all antihypertensives as patient is in septic shock requiring vasopressors Plan DVT prophylaxis: Eliquis Stress ulcer prophylaxis: Protonix Nutrition: NPO, speech to evaluate 1st bedside swallow Code Status: Full code Critical Care Time Spent: 47 minutes Due to a high probability of clinically significant, life threatening deterioration, the patient required my highest level of preparedness to intervene emergently and I personally spent this critical care time directly and personally managing the patient. This critical care time included obtaining a history; examining the patient; pulse oximetry; ordering and review of studies; arranging urgent treatment with development of a management plan; evaluation of patient's response to treatment; frequent reassessment; and discussions with other providers. It was exclusive of separately billable procedures and treating other patients and teaching time. Please see Assessment and Plan section and the rest of the note for further information on patient assessment and treatment This dictation may have been
[2024-01-31 08:35] LABS: Lactic Acid Reflex 1.7 mmol/L (0.7-2.0)
[2024-01-31] MEDS: MAGNESIUM SULF 2 GM/WATER 50ML 2 GM/50 ML BAG IVPB (09:08)
[2024-01-31] MEDS: CALCIUM GLUC 2,000 MG/NS 100ML 2,000 MG/100 ML BAG 100 MG IVPB (09:09)
[2024-01-31] MEDS: PIPERACILLN/TAZ 3.375GM/NS50ML 3.375 GM/50 ML BAG IVPB ×3 (09:09→20:34)
[2024-01-31] MEDS: PANTOPRAZOLE SODIUM IV 40 MG VIAL IV PUSH (09:09)
[2024-01-31 09:18] LABS: Hepatitis B Surface Antigen Negative (Negative)
[2024-01-31 09:23] LABS: HAV RESULT Negative (Negative); Hepatitis B Core IgM Result Negative (Negative)
[2024-01-31] MEDS: APIXABAN 5 MG TABLET PO ×2 (09:30→17:11)
[2024-01-31] MEDS: SENNOSIDES 8.6 MG TABLET 17.2 MG PO ×2 (09:30→17:11)
[2024-01-31] MEDS: LACTULOSE 20 GM/30 ML UDC 30 GM PO ×2 (09:30→17:11)
[2024-01-31] MEDS: LINACLOTIDE 72 MCG CAPSULE PO (09:31)
[2024-01-31] MEDS: MIRABEGRON 50 MG ER TABLET PO (09:31)
[2024-01-31] MEDS: LIDOCAINE HCL 2% GEL UROJET 10 ML PKG MUCOUS MEM ×2 (09:31→18:09)
[2024-01-31] MEDS: polyethylene glycoL 3350 17 GM POWD.PACK PO (09:31)
[2024-01-31] MEDS: TOLTERODINE TARTRATE 2 MG TABLET PO ×2 (09:31→20:34)
[2024-01-31] MEDS: LORazepam (*CRX) 0.5 MG TABLET PO ×2 (09:31→17:12)
[2024-01-31 09:35] LABS: Hepatitis C Virus Antibody Negative (Negative)
[2024-01-31] MEDS: oxyCODONE HCL (*CRX) 5 MG TAB IR 10 MG PO ×2 (09:35→17:12)
[2024-01-31] MEDS: NOREPINEPHRINE 8 MG/D5W 250 ML 8 MG/250 ML BAG 7.5 MG IV CONT (09:56)
[2024-01-31] MEDS: LACTATED RINGERS 1,000 ML 75 ML IV CONT ×2 (09:59→22:15)
--- NOTE | 2024-01-31 11:18 | PCSTNOTE ---
Please refer to the Bedside Swallow Evaluation in the EMR. Please note, silent aspiration cannot be ruled out at bedside.
--- NOTE | 2024-01-31 18:00 | PC.NURSE ---
RN walked into room to check on patient after visitor had left and found container of tobacco pouches in bed; when RN asked patient where he got them patient stated they were in my pillow case . re-educated patient on why we cannot use tobacco products while in hospital. RN then placed that container of tobacco pouches in the safe with others that had previously been locked up.
[2024-01-31] MEDS: QUEtiapine FUMARATE 25 MG TABLET 50 MG PO (20:34)
[2024-01-31] MEDS: MELATONIN 3 MG TABLET PO (20:34)
[2024-01-31] MEDS: LIDOCAINE 5% PATCH 2 PATCH TOPICAL (20:36)
[2024-02-01] VITALS (22 sets, daily range): BP systolic 97–143; BP diastolic 70–99; PULSE 78–113; RESP 10–22; TEMP 36.4–36.9; O2SAT 90–98
[2024-02-01] MEDS: PIPERACILLN/TAZ 3.375GM/NS50ML 3.375 GM/50 ML BAG IVPB ×4 (02:28→20:21)
[2024-02-01] MEDS: CENTRAL LINE FLUSH 10 ML IV PUSH ×3 (05:37→22:27)
[2024-02-01] MEDS: LINEZOLID 600 MG/300 ML 600 MG/300 ML SOLN 300 MG IVPB ×2 (05:37→17:02)
[2024-02-01] MEDS: HYDROCORTISONE SODIUM SUCCINATE 100 MG/2 ML VIAL IV PUSH ×3 (05:37→22:27)
[2024-02-01 06:39] LABS: Hematocrit 34.5 % (42.0-52.0); Hemoglobin 10.3 g/dL (14.0-18.0); Immature Platelet Fraction Pct 7.6 % (0.9-11.2); Mean Corpuscular HGB Conc 29.9 g/dl (32-36); Mean Corpuscular Hemoglobin 24.6 pg (26-34); Mean Corpuscular Volume 82.5 fl (80-100); Mean Platelet Volume 10.4 fl (7.4-10.4); Platelet Count Result 114 k/mm3 (150-375); Red Blood Count 4.18 M/mm3 (4.6-6.20); Red Cell Distribution Width 16.8 % (11.5-14.5); White Blood Count 16.7 K/mm3 (4.5-10.0)
[2024-02-01 06:49] LABS: Alanine Aminotransferase 95 U/L (6-50); Albumin Level 3.8 g/dL (3.5-5.1); Alkaline Phosphatase 87 U/L (38-126); Anion Gap 8 mmol/L (4-12); Aspartate Amino Transferase 95 U/L (17-59); Bilirubin,Total 1.6 mg/dL (0.2-1.3); Blood Urea Nitrogen 18 mg/dL (9-20); Calcium 8.7 mg/dL (8.4-10.2); Carbon Dioxide 30 mmol/L (22-30); Chloride 103 mmol/L (98-107); Estimated CRCL calculation 110 ml/min; Estimated Glomerular Filt Rate > 60; Glucose 156 mg/dL (65-110); Lactic Acid Reflex 2.9 mmol/L (0.7-2.0); Magnesium 2.3 mg/dL (1.6-2.3); Phosphorus 2.6 mg/dL (2.5-4.5); Potassium 3.6 mmol/L (3.4-5.0); Sodium 141 mmol/L (137-145)
[2024-02-01 08:37] LABS: Band Neutrophils Percent 10 % (0-6); Lymphocytes Absolute Manual 1.33 K/mm3 (1.1-4.5); Metamyelocytes Percent 2 %; Monocytes Absolute Manual 1.33 K/mm3 (0.1-0.90); Monocytes Percent Manual 8 % (3-9); Neutrophils Absolute Manual 13.69 K/mm3 (1.3-6.7); Neutrophils Percent Manual 72 % (46-73); Platelet Estimate Adequate (Adequate); Schistocytes None Seen; Total Cells Counted 100
[2024-02-01] MEDS: POTASSIUM CHLORIDE 20 MEQ PACKET (FOR LIQUID) 40 MEQ PO (08:53)
[2024-02-01] MEDS: TOLTERODINE TARTRATE 2 MG TABLET PO ×2 (08:54→20:21)
[2024-02-01] MEDS: polyethylene glycoL 3350 17 GM POWD.PACK PO (08:54)
[2024-02-01] MEDS: LINACLOTIDE 72 MCG CAPSULE PO (08:54)
[2024-02-01] MEDS: APIXABAN 5 MG TABLET PO ×2 (08:54→16:57)
[2024-02-01] MEDS: LIDOCAINE HCL 2% GEL UROJET 10 ML PKG MUCOUS MEM ×3 (08:54→16:58)
[2024-02-01] MEDS: SENNOSIDES 8.6 MG TABLET 17.2 MG PO ×2 (08:54→16:57)
[2024-02-01] MEDS: MIRABEGRON 50 MG ER TABLET PO (08:54)
[2024-02-01] MEDS: LACTULOSE 20 GM/30 ML UDC 30 GM PO ×3 (08:54→16:57)
[2024-02-01] MEDS: PANTOPRAZOLE SODIUM IV 40 MG VIAL IV PUSH (08:55)
--- NOTE | 2024-02-01 09:20 | WPDINTPN ---
Progress Note: A&P Assessment and Plan (1) Septic shock: Code(s): A41.9 - Sepsis, unspecified organism; R65.21 - Severe sepsis with septic shock Status: Acute Assessment and Plan: 01/30/2024 patient was transfer from medical floor for hypotension refractory to 2 L IV fluid bolus, right femoral central line was inserted and patient was started on Levophed. Vasopressin was later added. -urine cultures growing VRE -blood culture x2 is growing Gram-positive cocci in clusters -VRE UTI and possible aspiration pneumonia as patient did have an emesis on 01/29 -OFF Levophed and vasopressin -continue stress dose steroids -will stop IV fluids -see albumin x4 doses for intravascular volume depletion -continue linezolid (01/29), -discontinue cefepime and start Zosyn (01/30) for aspiration pneumonia pneumonitis -check echo (2) Acute UTI: Code(s): N39.0 - Urinary tract infection, site not specified Status: Acute Assessment and Plan: UTI, cultures and antibiotics as above (3) Chronic back pain: Code(s): M54.9 - Dorsalgia, unspecified; G89.29 - Other chronic pain Status: Acute Assessment and Plan: Patient has chronic back pain, continue p.r.n. oxycodone -patient also has a baclofen (4) Bladder spasms: Code(s): N32.89 - Other specified disorders of bladder Status: Acute Assessment and Plan: Continue tolterodine, Mirabegron (5) Constipation due to opioid therapy: Code(s): K59.03 - Drug induced constipation; T40.2X5A - Adverse effect of other opioids, initial encounter Status: Acute Assessment and Plan: Patient on senna S, MiraLax, lactulose, -will give soapsuds enema, patient normally gets that for constipation (6) Paraplegia: Code(s): G82.20 - Paraplegia, unspecified Status: Acute Assessment and Plan: Chronic, (7) Elevated LFTs: Code(s): R79.89 - Other specified abnormal findings of blood chemistry Status: Acute Assessment and Plan: Elevated LFTs and bilirubin could be related to severe hypotension, decreased perfusion, shock liver - Right upper quadrant ultrasound showed cholelithiasis gallbladder wall thickening but negative sonographic Veloz sign. CBD is normal. Alkaline phosphatase normal. Bilirubin is improving -AST and ALT improving -negative viral hepatitis panel (8) Electrolyte imbalance: Code(s): E87.8 - Other disorders of electrolyte and fluid balance, not elsewhere classified Status: Acute Assessment and Plan: Will replace potassium (9) History of DVT (deep vein thrombosis): Code(s): Z86.718 - Personal history of other venous thrombosis and embolism Status: Acute Assessment and Plan: Continue Eliquis (10) History of hypertension: Code(s): Z86.79 - Personal history of other diseases of the circulatory system Status: Acute Assessment and Plan: Will hold all antihypertensives as patient is in septic shock requiring vasopressors Plan DVT prophylaxis: Eliquis Stress ulcer prophylaxis: Protonix Nutrition: Diet ordered Code Status: Full code Critical Care Time Spent: 30 minutes Due to a high probability of clinically significant, life threatening deterioration, the patient required my highest level of preparedness to intervene emergently and I personally spent this critical care time directly and personally managing the patient. This critical care time included obtaining a history; examining the patient; pulse oximetry; ordering and review of studies; arranging urgent treatment with development of a management plan; evaluation of patient's response to treatment; frequent reassessment; and discussions with other providers. It was exclusive of separately billable procedures and treating other patients and teaching time. Please see Assessment and Plan section and the rest of the note for further information on patient assessment and tr
[2024-02-01 09:33] LABS: Reflex Lactic Acid Yes or No Add Lactic
[2024-02-01 10:16] LABS: Lactic Acid 2.8 mmol/L (0.7-2.0)
--- NOTE | 2024-02-01 10:32 | PCNFU ---
Nutrition Follow-Up Complete: Increased protein energy needs related to wound healing as evidenced by multiple pressure injuries present on admission Goal: Adequate PO intake at least 75% meals and supplements when diet is advanced - Not progressing with intakes Pt current nutrition is Full liquid diet. Nutrition recommendation: Add supplements when patient is more alert and taking PO intake better Last recorded weight is 80.1 kg. Bowel Motility: +1 BM 02/01/24 Labs Reviewed: Hgb 10.3, Hct 34.5, Cre 0.6, Glu 156 Meds Noted: Eliquis, Lactulose,protonix, zosyn Skin:Stage 3 R ankle. DTI BL ankles. DTI/unstageable to sacrum Additional Notes: Mental status declined from yesterday per RN. Pt is not taking PO intake and is confused and pulling at lines. Pre-existing paraplegic. Will add supplements for wounds when pt is more able to eat. Monitoring diet orders, weights, labs, intakes, supplement tolerance, wound healing, plan of care Following in ICU rounds, every 3 days
[2024-02-01] MEDS: QUEtiapine FUMARATE 25 MG TABLET 50 MG PO (20:21)
--- NOTE | 2024-02-01 21:30 | PC.NURSE ---
pt follows commands and able to use midddle finger to touch nose with both hands pupils equal and reactive equal smile no deviation of toungue but remains aphasic can write name with right hand when asked but rewrites name when asked other questions like the year or day. KAYY Brown aware and came bedside for an evaluation.
[2024-02-02] VITALS (19 sets, daily range): BP systolic 108–158; BP diastolic 82–109; PULSE 88–118; RESP 14–30; TEMP 36.6–37; O2SAT 92–98
[2024-02-02] MEDS: PIPERACILLN/TAZ 3.375GM/NS50ML 3.375 GM/50 ML BAG IVPB ×4 (02:35→19:48)
[2024-02-02] MEDS: oxyCODONE HCL (*CRX) 5 MG TAB IR 10 MG PO (03:28)
[2024-02-02] MEDS: BACLOFEN 10 MG TABLET 20 MG PO (03:28)
[2024-02-02] MEDS: TIZANIDINE HCL 4 MG TABLET PO (04:06)
[2024-02-02] MEDS: LINEZOLID 600 MG/300 ML 600 MG/300 ML SOLN 300 MG IVPB ×2 (05:42→17:53)
[2024-02-02] MEDS: HYDROCORTISONE SODIUM SUCCINATE 100 MG/2 ML VIAL IV PUSH (05:42)
[2024-02-02] MEDS: CENTRAL LINE FLUSH 10 ML IV PUSH ×3 (06:45→21:09)
--- NOTE | 2024-02-02 08:59 | WPDINTPN ---
Progress Note: A&P Assessment and Plan (1) Septic shock: Code(s): A41.9 - Sepsis, unspecified organism; R65.21 - Severe sepsis with septic shock Status: Acute Assessment and Plan: 01/30/2024 patient was transfer from medical floor for hypotension refractory to 2 L IV fluid bolus, right femoral central line was inserted and patient was started on Levophed. Vasopressin was later added. -urine cultures growing VRE -blood culture x2 is growing Gram-positive cocci in clusters -VRE UTI and possible aspiration pneumonia as patient did have an emesis on 01/29 -OFF Levophed and vasopressin now -I will discontinue stress dose steroids -off IV fluids -received albumin x4 doses for intravascular volume depletion -continue linezolid (01/29), -discontinue cefepime and started t Zosyn (01/30) for aspiration pneumonia pneumonitis -check echo - 02/01 repeat blood cultures ordered (2) Acute UTI: Code(s): N39.0 - Urinary tract infection, site not specified Status: Acute Assessment and Plan: UTI, cultures and antibiotics as above (3) Chronic back pain: Code(s): M54.9 - Dorsalgia, unspecified; G89.29 - Other chronic pain Status: Acute Assessment and Plan: Patient has chronic back pain, continue p.r.n. oxycodone but decrease to -patient also has a baclofen and I will decrease to (4) Bladder spasms: Code(s): N32.89 - Other specified disorders of bladder Status: Acute Assessment and Plan: Continue tolterodine, Mirabegron (5) Constipation due to opioid therapy: Code(s): K59.03 - Drug induced constipation; T40.2X5A - Adverse effect of other opioids, initial encounter Status: Acute Assessment and Plan: Patient on senna S, MiraLax, lactulose, -will give soapsuds enema, patient normally gets that for constipation (6) Paraplegia: Code(s): G82.20 - Paraplegia, unspecified Status: Acute Assessment and Plan: Chronic (7) Elevated LFTs: Code(s): R79.89 - Other specified abnormal findings of blood chemistry Status: Acute Assessment and Plan: Elevated LFTs and bilirubin could be related to severe hypotension, decreased perfusion, shock liver - Right upper quadrant ultrasound showed cholelithiasis gallbladder wall thickening but negative sonographic Veloz sign. CBD is normal. Alkaline phosphatase normal. Bilirubin is improving -AST and ALT improving -negative viral hepatitis panel (8) Electrolyte imbalance: Code(s): E87.8 - Other disorders of electrolyte and fluid balance, not elsewhere classified Status: Acute Assessment and Plan: Will replace potassium (9) History of DVT (deep vein thrombosis): Code(s): Z86.718 - Personal history of other venous thrombosis and embolism Status: Acute Assessment and Plan: Continue Eliquis (10) History of hypertension: Code(s): Z86.79 - Personal history of other diseases of the circulatory system Status: Acute Assessment and Plan: Currently holding all antihypertensives as patient was in septic shock requiring vasopressors (11) Delirium: Code(s): R41.0 - Disorientation, unspecified Status: Acute Assessment and Plan: Benzodiazepines, decreased muscle relaxants and opioids Manage environment factors Head CT negative Plan DVT prophylaxis: Eliquis Stress ulcer prophylaxis: Protonix Nutrition: Diet ordered Code Status: Full code Subjective Date/time seen: 02/02/24 Patient had confusion overnight this morning he appears awake and partially oriented. States that he feels all right denies any shortness of breath chest pain belly pain nausea vomiting headache dizziness lightheadedness. He is only oriented x2 but does follow commands. Blood pressure has been adequate sinus rhythm on the monitor. He is off of all IV infusion. Urine output is good and he is afebrile. On nasal cannula. Patient had bowel
[2024-02-02] MEDS: APIXABAN 5 MG TABLET PO ×2 (09:09→16:19)
[2024-02-02] MEDS: LIDOCAINE HCL 2% GEL UROJET 10 ML PKG MUCOUS MEM ×3 (09:10→16:19)
[2024-02-02] MEDS: MIRABEGRON 50 MG ER TABLET PO (09:10)
[2024-02-02] MEDS: LINACLOTIDE 72 MCG CAPSULE PO (09:10)
[2024-02-02] MEDS: PANTOPRAZOLE SODIUM IV 40 MG VIAL IV PUSH (09:11)
[2024-02-02] MEDS: TOLTERODINE TARTRATE 2 MG TABLET PO ×2 (09:12→19:49)
--- NOTE | 2024-02-02 10:31 | PCFNICU ---
ICU Rounding Note: Pt current nutrition is Full liquids. Nutrition recommendation: advance to regular diet and add Jacques BID and Ensure Compact BID. Last recorded weight is 82.3 kg Bowel Motility: +BM reported 02/01 Labs Reviewed: no new labs Meds Noted:Zosyn, Lactulose, Protonix, Eliquis Skin: Stage 3-right ankle, DTI-Right ankle, DTI-Left ankle, DTI/unstageable-sacrum. Additional Notes: Patient currently on a full liquid diet. Minimal intake has been reported. Diet is advanced as tolerated, plans for regular diet at lunch. MD orders for Jacques BID and Ensure Compact BID for additional kcal and protein needs. Agree with diet orders. Monitoring diet orders, weights, labs, intakes, supplement tolerance, wound healing, plan of care Following in ICU rounds, every 3 days.
--- NOTE | 2024-02-02 11:09 | PC.NURSE ---
Agitated in bed. Flapping arms saying come on guys . Tried to reorient patient to place and time. Scrambled speech. Dr. Davidson aware.
[2024-02-02] MEDS: POTASSIUM CHLORIDE 20 MEQ PACKET (FOR LIQUID) 40 MEQ PO (11:54)
[2024-02-02] MEDS: oxyCODONE HCL (*CRX) 5 MG TAB IR PO ×2 (11:54→19:50)
--- NOTE | 2024-02-02 12:12 | PM.IMPN ---
Progress Note: A&P Assessment and Plan (1) Septic shock: Code(s): A41.9 - Sepsis, unspecified organism; R65.21 - Severe sepsis with septic shock Status: Acute Assessment and Plan: Patient sharan in for nausea and vomiting on 01/27. He was admitted for UTI. Started on Meropenem (stopped 01/29) Patient was transfer to ICU on 01/29 for hypotension refractory to 2 L IV fluid bolus. Right femoral central line was inserted and patient was started on Levophed. Vasopressin was later added. UCx growing VRE BCx 01/29: growing Staph aureus VRE UTI and possible aspiration pneumonia as patient did have an emesis on 01/29 Soul-Cortef added 01/29. Albumin x4 doses. Linezolid started 01/29. 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 BCx repeated. Continue current abx. (2) Acute UTI: Code(s): N39.0 - Urinary tract infection, site not specified Status: Acute Assessment and Plan: As above (3) Chronic back pain: Code(s): M54.9 - Dorsalgia, unspecified; G89.29 - Other chronic pain Status: Acute Assessment and Plan: Patient has chronic back pain. Continue p.r.n. oxycodone Patient also with baclofen and baclofen pump Monitor and consider MRI (if possible) if persistent/worsening back pain and/or persistent bacteremia (4) Bladder spasms: Code(s): N32.89 - Other specified disorders of bladder Status: Acute Assessment and Plan: Stable. Continue tolterodine, Mirabegron (5) Constipation due to opioid therapy: Code(s): K59.03 - Drug induced constipation; T40.2X5A - Adverse effect of other opioids, initial encounter Status: Acute Assessment and Plan: Patient on senna S, MiraLax, lactulose Soapsuds enema given with good results. (6) Paraplegia: Code(s): G82.20 - Paraplegia, unspecified Status: Acute Assessment and Plan: Chronic. Routine skin care with frequent turning. (7) Elevated LFTs: Code(s): R79.89 - Other specified abnormal findings of blood chemistry Status: Acute Assessment and Plan: Elevated LFTs and bilirubin could be related to severe hypotension, decreased perfusion, shock liver RUQ US showed cholelithiasis, gallbladder wall thickening but negative sonographic Veloz sign. CBD is normal. Viral hepatitis panel negative Labs not checked today (8) Electrolyte imbalance: Code(s): E87.8 - Other disorders of electrolyte and fluid balance, not elsewhere classified Status: Acute Assessment and Plan: Stable but not checked today (9) History of DVT (deep vein thrombosis): Code(s): Z86.718 - Personal history of other venous thrombosis and embolism Status: Acute Assessment and Plan: Continue Eliquis (10) History of hypertension: Code(s): Z86.79 - Personal history of other diseases of the circulatory system Status: Acute Assessment and Plan: Currently holding all antihypertensives as patient since he was in septic shock requiring vasopressors (11) Delirium: Code(s): R41.0 - Disorientation, unspecified Status: Acute Assessment and Plan: Benzodiazepines, decreased muscle relaxants and opioids Manage environment factors Head CT negative Monitor Plan DVT prophylaxis: Eliquis Stress ulcer prophylaxis: Protonix Nutrition: Diet ordered Code Status: Full code Subjective Date/time seen: 02/02/24 12:12 Interval history: 58yo male with paraplegia, chronic SP catheter, HTN and DVT here for nausea and vomiting. Assuming care. Chart reviewed. He is confused this morning. +BMs Review of Systems Review of Systems: ROS unobtainable: Yes unobtainable due to mental status Exam Narrative: AF 98.2 129/99 112 23 98% 2L Gen - NARD Chest - Clear anterior
[2024-02-02] MEDS: TIZANIDINE HCL 2 MG TABLET PO ×3 (13:20→19:49)
[2024-02-02] MEDS: BACLOFEN 10 MG TABLET PO (16:20)
[2024-02-02] MEDS: ACETAMINOPHEN 500 MG TABLET 1000 MG BY MOUTH (19:48)
[2024-02-02] MEDS: MELATONIN 3 MG TABLET PO (19:49)
[2024-02-02] MEDS: QUEtiapine FUMARATE 25 MG TABLET 50 MG PO (19:49)
[2024-02-03] VITALS (17 sets, daily range): BP systolic 143–196; BP diastolic 83–113; PULSE 55–115; RESP 18–30; TEMP 36.3–36.6; O2SAT 92–100
--- NOTE | 2024-02-03 | ECHO_ITS ---
Patient Info Name: Evgeny York Age: 58 years : 1965 Gender: Male Ht: 68 in Wt: 181 lbs BSA: 2.00 m2 HR: 97 bpm BP: 167 / 95 mmHg Heart Rhythm: Sinus Rhythm Technical Quality: Fair Exam Date: 02/03/2024 7:19 AM Exam Location: Echo Lab Patient Status: Inpatient Admit Date: 01/30/2024 Staff Ordering Physician: Chris Wilkerson MD Strip Cutter: Kemi Lei RDCS Attending Provider: Edith Zhang MD Exam Type: CA echo doppler color flow Study Info Indications - bacteremia Complete two-dimensional, color flow and Doppler transthoracic echocardiogram is performed. Summary 1. Complete two-dimensional, color flow and Doppler transthoracic echocardiogram is performed. 2. Left ventricular chamber dimension is normal. 3. Left ventricular systolic function is normal, estimated at 65-70%. 4. There is severe asymmetric septal increased left ventricular wall thickness. 5. The left ventricular diastolic function is abnormal. 6. Left atrial chamber dimension is mildly enlarged. 7. There is moderate aortic valve sclerosis. 8. There is mild mitral valve regurgitation. 9. The mitral valve annulus is mildly calcified. 10. Systolic anterior motion of the mitral leaflet is noted. 11. The mitral valve has thickened leaflets. 12. There is mild tricuspid valve regurgitation. 13. Mild pulmonary hypertension, estimated pulmonary arterial systolic pressure is 37 mmHg. Left Ventricle Left ventricular chamber dimension is normal. Left ventricular systolic function is normal, estimated at 65-70%. There is severe asymmetric septal increased left ventricular wall thickness. The left ventricular diastolic function is abnormal. Right Ventricle Right ventricular chamber dimension is normal. Right ventricular systolic function is normal. Left Atria Left atrial chamber dimension is mildly enlarged. Right Atria Right atrial chamber dimension is normal. Atrial Septum Intact interatrial septum visualized by color flow imaging. Aortic Valve The aortic valve is trileaflet. There is moderate aortic valve sclerosis. There is no aortic valve stenosis. There is trace aortic valve regurgitation. Pulmonic Valve The pulmonic valve is normal. There is no pulmonic valve stenosis. There is trace pulmonic regurgitation. Mitral Valve The mitral valve has thickened leaflets. There is no mitral valve stenosis. There is mild mitral valve regurgitation. The mitral valve annulus is mildly calcified. Systolic anterior motion of the mitral leaflet is noted. Tricuspid Valve The tricuspid valve leaflets are normal. There is no significant tricuspid valve stenosis. There is mild tricuspid valve regurgitation. Mild pulmonary hypertension, estimated pulmonary arterial systolic pressure is 37 mmHg. Pericardium/Pleural The pericardium appears normal. There is no pericardial effusion. Inferior Vena Cava Normal inferior vena cava with >50% collapse upon inspiration consistent with normal right atrial pressure, 10 mmHg. Aorta The aortic root size at the sinus of Valsalva is normal. Left Ventricular Outflow Tract Name Value Normal LVOT 2D LVOT Diameter 2.0 cm LVOT Doppler LVOT Peak Gradient
[2024-02-03] MEDS: PIPERACILLN/TAZ 3.375GM/NS50ML 3.375 GM/50 ML BAG IVPB ×4 (03:25→20:07)
[2024-02-03] MEDS: TIZANIDINE HCL 2 MG TABLET PO ×2 (03:31→15:34)
[2024-02-03] MEDS: LINEZOLID 600 MG/300 ML 600 MG/300 ML SOLN 300 MG IVPB ×2 (05:43→17:23)
[2024-02-03] MEDS: CENTRAL LINE FLUSH 10 ML IV PUSH ×3 (05:44→21:18)
[2024-02-03 05:55] LABS: Basophils Percent Auto 0.2 % (0.2-1.2); Eosinophils Percent Auto 0.1 % (0-4.4); Hematocrit 35.8 % (42.0-52.0); Hemoglobin 11.1 g/dL (14.0-18.0); Immature Granulocyte Absolute 0.04 K/mm3 (0.00-0.031); Immature Granulocyte Percent A 0.4 % (0-0.5); Immature Platelet Fraction Pct 6.2 % (0.9-11.2); Lymphocytes Absolute Auto 1.24 K/mm3 (0.9-3.2); Lymphocytes Percent Auto 13.6 % (18.3-44.2); Mean Corpuscular Hemoglobin 24.6 pg (26-34); Mean Corpuscular Volume 79.4 fl (80-100); Mean Platelet Volume 10.8 fl (7.4-10.4); Monocytes Absolute Auto 0.3 K/mm3 (0.1-0.6); Monocytes Percent Auto 3.2 % (2.6-8.5); Neutrophils Absolute Auto 7.5 K/mm3 (1.3-6.7); Neutrophils Percent Auto 82.5 % (45.5-73.1); Platelet Count Result 123 k/mm3 (150-375); Red Blood Count 4.51 M/mm3 (4.6-6.20); Red Cell Distribution Width 17.2 % (11.5-14.5); White Blood Count 9.1 K/mm3 (4.5-10.0)
[2024-02-03 06:10] LABS: Alanine Aminotransferase 60 U/L (6-50); Albumin Level 3.7 g/dL (3.5-5.1); Alkaline Phosphatase 127 U/L (38-126); Anion Gap 5 mmol/L (4-12); Aspartate Amino Transferase 34 U/L (17-59); Bilirubin,Total 1.1 mg/dL (0.2-1.3); Blood Urea Nitrogen 24 mg/dL (9-20); Calcium 8.7 mg/dL (8.4-10.2); Carbon Dioxide 32 mmol/L (22-30); Chloride 105 mmol/L (98-107); Estimated CRCL calculation 130 ml/min; Estimated Glomerular Filt Rate > 60; Glucose 69 mg/dL (65-110); Magnesium 1.9 mg/dL (1.6-2.3); Phosphorus 1.2 mg/dL (2.5-4.5); Potassium 2.8 mmol/L (3.4-5.0); Sodium 142 mmol/L (137-145)
[2024-02-03] MEDS: KCL 40 MEQ/WATER 100 ML 100 ML 25 ML IVPB (08:19)
[2024-02-03] MEDS: MAGNESIUM SULF 1 GM/D5W 100 ML 1 GM/100 ML BAG IVPB (08:19)
[2024-02-03] MEDS: MIRABEGRON 50 MG ER TABLET PO (08:19)
[2024-02-03] MEDS: SENNOSIDES 8.6 MG TABLET 17.2 MG PO ×2 (08:20→16:11)
[2024-02-03] MEDS: LINACLOTIDE 72 MCG CAPSULE PO (08:20)
[2024-02-03] MEDS: APIXABAN 5 MG TABLET PO ×2 (08:20→16:11)
[2024-02-03] MEDS: BACLOFEN 10 MG TABLET PO ×2 (08:20→21:16)
[2024-02-03] MEDS: PANTOPRAZOLE SODIUM IV 40 MG VIAL IV PUSH (08:20)
[2024-02-03] MEDS: polyethylene glycoL 3350 17 GM POWD.PACK PO (08:20)
[2024-02-03] MEDS: POTASSIUM/PHOSPHORUS/SODIUM 1.5 GM PACKET 1 PACKET PO ×2 (08:20→21:17)
[2024-02-03] MEDS: TOLTERODINE TARTRATE 2 MG TABLET PO ×2 (08:20→21:15)
[2024-02-03] MEDS: LACTULOSE 20 GM/30 ML UDC 30 GM PO ×2 (08:21→12:20)
[2024-02-03 09:00] LABS: Glucose Point of Care 89 mg/dl (65-105)
--- NOTE | 2024-02-03 09:06 | PM.IMPN ---
Progress Note: A&P Assessment and Plan (1) Delirium: Code(s): R41.0 - Disorientation, unspecified Status: Acute Assessment and Plan: Patient on benzodiazepines, muscle relaxants Currently has opioids prn but does not take this at the correction Head CT 01/31 showing no acute process. Was on scheduled lorazepam but now prn and was on hold. Also off his Elavil and Gabapentin We resumed lorazepam and had RN give. Symptoms did improve. Consider delirium related to being off scheduled benzodiazepins and other meds. Can't give Elavil due to interaction with linezolid. Resume Mary at lower dose and advance as toelrated. Monitor (2) Septic shock: Code(s): A41.9 - Sepsis, unspecified organism; R65.21 - Severe sepsis with septic shock Status: Acute Assessment and Plan: Patient sharan in for nausea and vomiting on 01/27. He was admitted for UTI. Started on Meropenem (stopped 01/29) Patient was transfer to ICU on 01/29 for hypotension refractory to 2 L IV fluid bolus. Right femoral central line was inserted and patient was started on Levophed. Vasopressin was later added. UCx growing VRE BCx 01/29 growing MRSA (Lactobacillus was a contaminant) Possible aspiration pneumonia as patient did have an emesis on 01/29 Soul-Cortef added 01/29. Albumin x4 doses. Linezolid started 01/29. 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 Off IV fluids Echo showing no obvious vegetations. Repeat BCx NGTD Continue current abx. (3) Acute UTI: Code(s): N39.0 - Urinary tract infection, site not specified Status: Acute Assessment and Plan: As above (4) Chronic back pain: Code(s): M54.9 - Dorsalgia, unspecified; G89.29 - Other chronic pain Status: Acute Assessment and Plan: Patient has chronic back pain. Patient with baclofen pump Monitor and consider MRI (if possible) if persistent/worsening back pain and/or persistent bacteremia Narcotics stopped to try to improve the delirium (5) Constipation due to opioid therapy: Code(s): K59.03 - Drug induced constipation; T40.2X5A - Adverse effect of other opioids, initial encounter Status: Acute Assessment and Plan: Patient on senna, MiraLax, lactulose at snf and these were continued Soapsuds enema given with good results. Follow (6) Elevated LFTs: Code(s): R79.89 - Other specified abnormal findings of blood chemistry Status: Acute Assessment and Plan: Elevated LFTs and bilirubin felt related to severe hypotension, decreased perfusion, shock liver RUQ US showed cholelithiasis, gallbladder wall thickening but negative sonographic Veloz sign. CBD is normal. Viral hepatitis panel negative Levels trending down. (7) History of hypertension: Code(s): Z86.79 - Personal history of other diseases of the circulatory system Status: Acute Assessment and Plan: Currently holding all antihypertensives as patient since he was in septic shock requiring vasopressors BP elevated now so will resume amlodipine/ Continue to add back his anti-HTN as BP allows. (8) Bladder spasms: Code(s): N32.89 - Other specified disorders of bladder Status: Acute Assessment and Plan: Stable. Continue tolterodine, Mirabegron (9) Paraplegia: Code(s): G82.20 - Paraplegia, unspecified Status: Acute Assessment and Plan: Chronic. Routine skin care with frequent turning. (10) Electrolyte imbalance: Code(s): E87.8 - Other disorders of electrolyte and fluid balance, not elsewhere classified Status: Acute Assessment and Plan: Potassium and phos low today. Will replace. Also replave Mag. Repeat levels ordered (11) History of DVT (deep vein thrombosis): Code(s): Z86.718 - Personal history of other venous thrombosis and emb
[2024-02-03] MEDS: LIDOCAINE HCL 2% GEL UROJET 10 ML PKG MUCOUS MEM ×3 (09:28→16:11)
[2024-02-03] MEDS: LORazepam (*CRX) 0.5 MG TABLET PO ×3 (09:31→20:11)
[2024-02-03] MEDS: amLODIPine BESYLATE 5 MG TABLET 10 MG PO (16:11)
[2024-02-03] MEDS: FLUTICASONE PROPIONATE 0.05% NA SPR 16 GM BTL (*BKC) 1 SPRAY NASAL (17:22)
--- NOTE | 2024-02-03 18:26 | PC.NURSE ---
This patient, Evgeny York, was transferred to [facility] on 02/03/24 at 1810. Personal belongings sent with patient. Report given to Keturah at 0266. Appropriate documentation sent with patient. Supper tray delivered as we were transferring him out. Sent with patient. Antibiotics continued to infuse at transfer.
[2024-02-03] MEDS: GABAPENTIN 300 MG CAPSULE PO (20:11)
[2024-02-03] MEDS: MELATONIN 3 MG TABLET PO (20:11)
[2024-02-03] MEDS: QUEtiapine FUMARATE 25 MG TABLET 50 MG PO (20:11)
[2024-02-03 20:28] LABS: Magnesium 1.8 mg/dL (1.6-2.3); Phosphorus 1.7 mg/dL (2.5-4.5); Potassium 3.2 mmol/L (3.4-5.0)
[2024-02-03] MEDS: POTASSIUM CHLORIDE 20 MEQ PACKET (FOR LIQUID) 40 MEQ PO (21:16)
[2024-02-04] VITALS (20 sets, daily range): BP systolic 137–175; BP diastolic 85–106; PULSE 81–118; RESP 16–20; TEMP 36.1–37.2; O2SAT 93–100
[2024-02-04 02:46] LABS: Alanine Aminotransferase 48 U/L (6-50); Albumin Level 3.7 g/dL (3.5-5.1); Alkaline Phosphatase 122 U/L (38-126); Anion Gap 6 mmol/L (4-12); Aspartate Amino Transferase 25 U/L (17-59); Bilirubin,Total 0.9 mg/dL (0.2-1.3); Blood Urea Nitrogen 17 mg/dL (9-20); Calcium 8.4 mg/dL (8.4-10.2); Carbon Dioxide 32 mmol/L (22-30); Chloride 103 mmol/L (98-107); Estimated CRCL calculation 130 ml/min; Estimated Glomerular Filt Rate > 60; Glucose 96 mg/dL (65-110); Potassium 3.5 mmol/L (3.4-5.0); Sodium 141 mmol/L (137-145)
[2024-02-04] MEDS: PIPERACILLN/TAZ 3.375GM/NS50ML 3.375 GM/50 ML BAG IVPB ×4 (03:12→21:07)
[2024-02-04] MEDS: TIZANIDINE HCL 2 MG TABLET PO ×2 (03:13→21:46)
[2024-02-04] MEDS: LINEZOLID 600 MG/300 ML 600 MG/300 ML SOLN 300 MG IVPB ×2 (05:23→17:25)
[2024-02-04] MEDS: CENTRAL LINE FLUSH 10 ML IV PUSH ×3 (05:23→21:07)
[2024-02-04 05:35] LABS: Basophils Percent Auto 0.2 % (0.2-1.2); Eosinophils Absolute Auto 0.1 K/mm3 (0-0.3); Eosinophils Percent Auto 1.2 % (0-4.4); Hemoglobin 11.3 g/dL (14.0-18.0); Immature Granulocyte Absolute 0.02 K/mm3 (0.00-0.031); Immature Granulocyte Percent A 0.4 % (0-0.5); Immature Platelet Fraction Pct 5.3 % (0.9-11.2); Lymphocytes Absolute Auto 1.11 K/mm3 (0.9-3.2); Lymphocytes Percent Auto 22.6 % (18.3-44.2); Mean Corpuscular HGB Conc 31.4 g/dl (32-36); Mean Corpuscular Hemoglobin 24.9 pg (26-34); Mean Corpuscular Volume 79.3 fl (80-100); Mean Platelet Volume 9.8 fl (7.4-10.4); Monocytes Absolute Auto 0.3 K/mm3 (0.1-0.6); Monocytes Percent Auto 5.3 % (2.6-8.5); Neutrophils Absolute Auto 3.5 K/mm3 (1.3-6.7); Neutrophils Percent Auto 70.3 % (45.5-73.1); Platelet Count Result 131 k/mm3 (150-375); Red Blood Count 4.54 M/mm3 (4.6-6.20); Red Cell Distribution Width 17.5 % (11.5-14.5); White Blood Count 4.9 K/mm3 (4.5-10.0)
[2024-02-04 05:51] LABS: Alanine Aminotransferase 46 U/L (6-50); Albumin Level 3.7 g/dL (3.5-5.1); Alkaline Phosphatase 118 U/L (38-126); Anion Gap 5 mmol/L (4-12); Aspartate Amino Transferase 24 U/L (17-59); Bilirubin,Total 0.9 mg/dL (0.2-1.3); Blood Urea Nitrogen 15 mg/dL (9-20); Calcium 8.4 mg/dL (8.4-10.2); Carbon Dioxide 34 mmol/L (22-30); Chloride 102 mmol/L (98-107); Estimated CRCL calculation 130 ml/min; Estimated Glomerular Filt Rate > 60; Glucose 99 mg/dL (65-110); Magnesium 1.6 mg/dL (1.6-2.3); Phosphorus 2.1 mg/dL (2.5-4.5); Potassium 3.3 mmol/L (3.4-5.0); Sodium 141 mmol/L (137-145)
[2024-02-04] MEDS: LACTULOSE 20 GM/30 ML UDC 30 GM PO ×3 (09:07→17:25)
[2024-02-04] MEDS: PANTOPRAZOLE SODIUM IV 40 MG VIAL IV PUSH (09:08)
[2024-02-04] MEDS: amLODIPine BESYLATE 5 MG TABLET 10 MG PO (09:08)
[2024-02-04] MEDS: LINACLOTIDE 72 MCG CAPSULE PO (09:08)
[2024-02-04] MEDS: GABAPENTIN 300 MG CAPSULE PO ×2 (09:08→21:06)
[2024-02-04] MEDS: MIRABEGRON 50 MG ER TABLET PO (09:08)
[2024-02-04] MEDS: APIXABAN 5 MG TABLET PO ×2 (09:08→17:25)
[2024-02-04] MEDS: TOLTERODINE TARTRATE 2 MG TABLET PO ×2 (09:08→21:06)
[2024-02-04] MEDS: SENNOSIDES 8.6 MG TABLET 17.2 MG PO ×2 (09:09→17:25)
--- NOTE | 2024-02-04 09:15 | PCNFU ---
Nutrition Follow-Up Complete: Increased protein energy needs related to wound healing as evidenced by multiple pressure injuries present on admission Adequate PO intake at least 75% meals and supplements when diet is advanced - Goal is being met Goal: Pt current nutrition is Regular diet, Ensure Compact BID, Jacques BID for wounds. Nutrition recommendation: No new nutrition recommendations. Continue current diet orders and supplements. Last recorded weight is 80.5 kg. Bowel Motility: +3 BMs 02/04/24 Labs Reviewed: Hgb 11.3, Hct 36, K+ 3.3, Cre 0.5 Meds Noted: Eliquis, protonix Skin: Stage 3 R ankle, DTI BL ankles, DTI/unstageable sacrum Additional Notes: Intakes improved to 100% yesterday on regular diet. Mental status/alertness improving. Monitoring diet orders, weights, labs, intakes, supplement tolerance, wound healing, plan of care Following every 5 days
--- NOTE | 2024-02-04 11:42 | PM.IMPN ---
Progress Note: A&P Assessment and Plan (1) Delirium: Code(s): R41.0 - Disorientation, unspecified Status: Acute Assessment and Plan: Patient on benzodiazepines, muscle relaxants Currently has opioids prn but [facility] not [facility] Head CT 01/31 showing no acute process. Consider delirium related to being in ICU and being off scheduled meds. Was on scheduled lorazepam but now prn and was on hold. Also off his Elavil and Gabapentin We resumed lorazepam, gabapentin. Mental status did improve. Can't give Elavil due to interaction with linezolid. Monitor (2) Septic shock: Code(s): A41.9 - Sepsis, unspecified organism; R65.21 - Severe sepsis with septic shock Status: Acute Assessment and Plan: Patient sharan in for nausea and vomiting on 01/27. He was admitted for UTI. Started on Meropenem (stopped 01/29) Patient was transfer to ICU on 01/29 for hypotension refractory to 2 L IV fluid bolus. Right femoral central line was inserted and patient was started on Levophed. Vasopressin was added. UCx growing VRE BCx 01/29 growing MRSA (Lactobacillus was a contaminant) Possible aspiration pneumonia as patient did have an emesis on 01/29 Soul-Cortef added 01/29. Albumin x4 doses. Linezolid started 01/29. 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 Off IV fluids Echo showing no obvious vegetations. Repeat BCx NGTD Continue current abx. (3) Acute UTI: Code(s): N39.0 - Urinary tract infection, site not specified Status: Acute Assessment and Plan: As above (4) Chronic back pain: Code(s): M54.9 - Dorsalgia, unspecified; G89.29 - Other chronic pain Status: Acute Assessment and Plan: Patient has chronic back pain. Patient with baclofen pump Monitor and consider imaging(if possible) if persistent/worsening back pain and/or persistent bacteremia Narcotics stopped to try to improve the delirium (5) Constipation due to opioid therapy: Code(s): K59.03 - Drug induced constipation; T40.2X5A - Adverse effect of other opioids, initial encounter Status: Acute Assessment and Plan: Patient on senna, MiraLax, lactulose at long term and these were continued Soapsuds enema given with good results. Follow (6) Elevated LFTs: Code(s): R79.89 - Other specified abnormal findings of blood chemistry Status: Acute Assessment and Plan: Elevated LFTs and bilirubin felt related to severe hypotension, decreased perfusion, shock liver RUQ US showed cholelithiasis, gallbladder wall thickening but negative sonographic Veloz sign. CBD is normal. Viral hepatitis panel negative Resolved (7) History of hypertension: Code(s): Z86.79 - Personal history of other diseases of the circulatory system Status: Acute Assessment and Plan: Currently holding all antihypertensives as patient since he was in septic shock requiring vasopressors BP elevated now so we resumed amlodipine. BP still elevated so will add back Coreg. (8) Bladder spasms: Code(s): N32.89 - Other specified disorders of bladder Status: Acute Assessment and Plan: Stable. Continue tolterodine, Mirabegron (9) Paraplegia: Code(s): G82.20 - Paraplegia, unspecified Status: Acute Assessment and Plan: Chronic. Routine skin care with frequent turning. (10) Electrolyte imbalance: Code(s): E87.8 - Other disorders of electrolyte and fluid balance, not elsewhere classified Status: Acute Assessment and Plan: Potassium and phos low today. Will replace. Also replave Mag. Follow and replace (11) History of DVT (deep vein thrombosis): Code(s): Z86.718 - Personal history of other venous thrombosis and embolism Status: Acute Assessment and Plan: Continue Eliquis Plan D
[2024-02-04] MEDS: POTASSIUM CHLORIDE 20 MEQ PACKET (FOR LIQUID) 40 MEQ PO (13:06)
[2024-02-04] MEDS: carvediloL 6.25 MG TABLET PO ×2 (13:06→21:06)
[2024-02-04] MEDS: POTASSIUM/PHOSPHORUS/SODIUM 1.5 GM PACKET 1 PACKET PO (13:06)
[2024-02-04] MEDS: MAGNESIUM SULF 2 GM/WATER 50ML 2 GM/50 ML BAG IVPB (13:06)
[2024-02-04] MEDS: QUEtiapine FUMARATE 25 MG TABLET 50 MG PO (21:06)
[2024-02-04] MEDS: LORazepam (*CRX) 0.5 MG TABLET PO (21:46)
[2024-02-05] VITALS (12 sets, daily range): BP systolic 145–177; BP diastolic 92–100; PULSE 75–108; RESP 18–20; TEMP 36–37.8; O2SAT 92–99
[2024-02-05] MEDS: LIDOCAINE 5% PATCH 2 PATCH TOPICAL (02:22)
[2024-02-05] MEDS: PIPERACILLN/TAZ 3.375GM/NS50ML 3.375 GM/50 ML BAG IVPB ×4 (02:23→20:31)
[2024-02-05] MEDS: LINEZOLID 600 MG/300 ML 600 MG/300 ML SOLN 300 MG IVPB ×2 (06:16→18:00)
[2024-02-05] MEDS: CENTRAL LINE FLUSH 10 ML IV PUSH ×2 (06:16→13:18)
[2024-02-05 06:45] LABS: Eosinophils Absolute Auto 0.2 K/mm3 (0-0.3); Eosinophils Percent Auto 5.2 % (0-4.4); Hematocrit 37.3 % (42.0-52.0); Hemoglobin 11.4 g/dL (14.0-18.0); Immature Granulocyte Absolute 0.01 K/mm3 (0.00-0.031); Immature Granulocyte Percent A 0.3 % (0-0.5); Immature Platelet Fraction Pct 5.5 % (0.9-11.2); Lymphocytes Absolute Auto 1.14 K/mm3 (0.9-3.2); Lymphocytes Percent Auto 31.1 % (18.3-44.2); Mean Corpuscular HGB Conc 30.6 g/dl (32-36); Mean Corpuscular Hemoglobin 24.5 pg (26-34); Mean Corpuscular Volume 80.2 fl (80-100); Mean Platelet Volume 10.2 fl (7.4-10.4); Monocytes Absolute Auto 0.3 K/mm3 (0.1-0.6); Monocytes Percent Auto 7.1 % (2.6-8.5); Neutrophils Absolute Auto 2.1 K/mm3 (1.3-6.7); Neutrophils Percent Auto 56.3 % (45.5-73.1); Platelet Count Result 127 k/mm3 (150-375); Red Blood Count 4.65 M/mm3 (4.6-6.20); Red Cell Distribution Width 17.4 % (11.5-14.5); White Blood Count 3.7 K/mm3 (4.5-10.0)
[2024-02-05 06:54] LABS: Alanine Aminotransferase 44 U/L (6-50); Albumin Level 3.8 g/dL (3.5-5.1); Alkaline Phosphatase 96 U/L (38-126); Anion Gap 10 mmol/L (4-12); Aspartate Amino Transferase 33 U/L (17-59); Bilirubin,Total 0.8 mg/dL (0.2-1.3); Blood Urea Nitrogen 16 mg/dL (9-20); Calcium 8.6 mg/dL (8.4-10.2); Carbon Dioxide 30 mmol/L (22-30); Chloride 102 mmol/L (98-107); Estimated CRCL calculation 158 ml/min; Estimated Glomerular Filt Rate > 60; Glucose 88 mg/dL (65-110); Magnesium 1.8 mg/dL (1.6-2.3); Phosphorus 3.5 mg/dL (2.5-4.5); Potassium 3.2 mmol/L (3.4-5.0); Sodium 142 mmol/L (137-145)
[2024-02-05 07:36] LABS: Anisocytosis 1+; Hypochromasia 1+; Platelet Estimate Decreased (Adequate); Schistocytes None Seen
[2024-02-05] MEDS: LACTULOSE 20 GM/30 ML UDC 30 GM PO ×3 (08:31→16:47)
[2024-02-05] MEDS: polyethylene glycoL 3350 17 GM POWD.PACK PO (08:33)
[2024-02-05] MEDS: POTASSIUM CHLORIDE 20 MEQ PACKET (FOR LIQUID) 40 MEQ PO (08:34)
[2024-02-05] MEDS: TOLTERODINE TARTRATE 2 MG TABLET PO (08:34)
[2024-02-05] MEDS: SENNOSIDES 8.6 MG TABLET 17.2 MG PO ×2 (08:34→16:48)
[2024-02-05] MEDS: APIXABAN 5 MG TABLET PO ×2 (08:35→16:48)
[2024-02-05] MEDS: amLODIPine BESYLATE 5 MG TABLET 10 MG PO (08:35)
[2024-02-05] MEDS: MIRABEGRON 50 MG ER TABLET PO (08:35)
[2024-02-05] MEDS: GABAPENTIN 300 MG CAPSULE PO (08:35)
[2024-02-05] MEDS: LINACLOTIDE 72 MCG CAPSULE PO (08:35)
[2024-02-05] MEDS: carvediloL 6.25 MG TABLET PO (08:35)
[2024-02-05] MEDS: MAGNESIUM SULF 2 GM/WATER 50ML 2 GM/50 ML BAG IVPB (08:36)
[2024-02-05] MEDS: PANTOPRAZOLE SODIUM IV 40 MG VIAL IV PUSH (08:39)
[2024-02-05] MEDS: LIDOCAINE HCL 2% GEL UROJET 10 ML PKG MUCOUS MEM ×3 (08:40→16:48)
--- NOTE | 2024-02-05 14:05 | PM.IMPN ---
Progress Note: A&P Assessment and Plan (1) Delirium: Code(s): R41.0 - Disorientation, unspecified Status: Acute Assessment and Plan: Reviewed [facility] medication sheets and see benzodiazepines, muscle relaxants but not narcotics Currently off all opioids here Head CT 01/31 showing no acute process. Consider delirium related to being in ICU and being off scheduled meds. Was on scheduled lorazepam but now prn and was on hold. Also off his Elavil and Gabapentin We resumed lorazepam but kept it prn. We continued gabapentin. Mental status has improved. Can't give Elavil due to interaction with linezolid. Monitor No plans for narcotics. (2) Septic shock: Code(s): A41.9 - Sepsis, unspecified organism; R65.21 - Severe sepsis with septic shock Status: Acute Assessment and Plan: Patient sharan in for nausea and vomiting on 01/27. He was admitted for UTI. Started on Meropenem (stopped 01/29) Patient was transfer to ICU on 01/29 for hypotension refractory to 2 L IV fluid bolus. Right femoral central line was inserted and patient was started on Levophed. Vasopressin was added. UCx growing VRE BCx 01/29 growing MRSA (Lactobacillus was a contaminant) Possible aspiration pneumonia as patient did have an emesis on 01/29 Soul-Cortef added 01/29. Albumin x4 doses. Linezolid started 01/29. 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 Off IV fluids Echo showing no obvious vegetations. Repeat BCx 02/01 NGTD Continue current abx. Abx duration per PharmD ID. Remove central line (3) Acute UTI: Code(s): N39.0 - Urinary tract infection, site not specified Status: Acute Assessment and Plan: As above (4) Chronic back pain: Code(s): M54.9 - Dorsalgia, unspecified; G89.29 - Other chronic pain Status: Acute Assessment and Plan: Patient has chronic back pain. Patient with baclofen pump No persistent bacteremia and back pain less of an isue now Narcotics stopped. Follow (5) Constipation due to opioid therapy: Code(s): K59.03 - Drug induced constipation; T40.2X5A - Adverse effect of other opioids, initial encounter Status: Acute Assessment and Plan: Patient on senna, MiraLax, lactulose at [facility] and these were continued Soapsuds enema given with good results. No having frequent stools but patient wants to continue current home regiment Follow (6) Elevated LFTs: Code(s): R79.89 - Other specified abnormal findings of blood chemistry Status: Acute Assessment and Plan: Elevated LFTs and bilirubin felt related to severe hypotension, decreased perfusion, shock liver and sepsis RUQ US showed cholelithiasis, gallbladder wall thickening but negative sonographic Veloz sign. CBD is normal. Viral hepatitis panel negative Resolved (7) History of hypertension: Code(s): Z86.79 - Personal history of other diseases of the circulatory system Status: Acute Assessment and Plan: We held all antihypertensives since he was in septic shock requiring vasopressors BP elevated now so we resumed amlodipine and then Coreg. BP still elevated so will advance Coreg to home dose. (8) Bladder spasms: Code(s): N32.89 - Other specified disorders of bladder Status: Acute Assessment and Plan: Stable. Continue tolterodine, Mirabegron (9) Paraplegia: Code(s): G82.20 - Paraplegia, unspecified Status: Acute Assessment and Plan: Chronic. Routine skin care with frequent turning. (10) Electrolyte imbalance: Code(s): E87.8 - Other disorders of electrolyte and fluid balance, not elsewhere classified Status: Acute Assessment and Plan: Potassium low today. Will replace. Also replace Mag. Follow and replace (11) History of DVT (deep vein thrombosis): Code(s): Z8
--- NOTE | 2024-02-05 17:56 | PC.NURSE ---
303's personal belongings (chewing tobacco) placed into safe on 3 Med Surg.
--- NOTE | 2024-02-05 17:58 | PC.NURSE ---
Pt. arrived to room 303 at 1755. Oriented to unit policies and procedures.
[2024-02-05] MEDS: BACLOFEN 10 MG TABLET PO (20:27)
[2024-02-05] MEDS: MELATONIN 3 MG TABLET PO (20:27)
[2024-02-05] MEDS: GABAPENTIN 300 MG CAPSULE 600 MG PO (20:27)
[2024-02-05] MEDS: carvediloL 12.5 MG TABLET PO (20:28)
[2024-02-05] MEDS: QUEtiapine FUMARATE 25 MG TABLET 50 MG PO (20:28)
[2024-02-05] MEDS: ACETAMINOPHEN 500 MG TABLET 1000 MG BY MOUTH (20:28)
[2024-02-06] MEDS: PIPERACILLN/TAZ 3.375GM/NS50ML 3.375 GM/50 ML BAG IVPB ×4 (02:27→21:23)
[2024-02-06] MEDS: LINEZOLID 600 MG/300 ML 600 MG/300 ML SOLN 300 MG IVPB ×2 (05:29→17:56)
[2024-02-06 05:59] VITALS: BP 148/93; PULSE 64; RESP 16; TEMP 36.4; O2SAT 93
[2024-02-06 06:17] LABS: Basophils Percent Auto 0.2 % (0.2-1.2); Eosinophils Absolute Auto 0.4 K/mm3 (0-0.3); Eosinophils Percent Auto 9.5 % (0-4.4); Hematocrit 40.2 % (42.0-52.0); Immature Granulocyte Absolute 0.01 K/mm3 (0.00-0.031); Immature Granulocyte Percent A 0.2 % (0-0.5); Immature Platelet Fraction Pct 6.7 % (0.9-11.2); Lymphocytes Absolute Auto 1.31 K/mm3 (0.9-3.2); Lymphocytes Percent Auto 28.3 % (18.3-44.2); Mean Corpuscular HGB Conc 29.9 g/dl (32-36); Mean Corpuscular Hemoglobin 24.1 pg (26-34); Mean Corpuscular Volume 80.9 fl (80-100); Mean Platelet Volume 10.8 fl (7.4-10.4); Monocytes Absolute Auto 0.3 K/mm3 (0.1-0.6); Monocytes Percent Auto 6.9 % (2.6-8.5); Neutrophils Absolute Auto 2.5 K/mm3 (1.3-6.7); Neutrophils Percent Auto 54.9 % (45.5-73.1); Platelet Count Result 138 k/mm3 (150-375); Red Blood Count 4.97 M/mm3 (4.6-6.20); Red Cell Distribution Width 17.7 % (11.5-14.5); White Blood Count 4.6 K/mm3 (4.5-10.0)
[2024-02-06 06:27] LABS: Alanine Aminotransferase 54 U/L (6-50); Albumin Level 4.2 g/dL (3.5-5.1); Alkaline Phosphatase 100 U/L (38-126); Anion Gap 7 mmol/L (4-12); Aspartate Amino Transferase 38 U/L (17-59); Bilirubin,Total 0.9 mg/dL (0.2-1.3); Blood Urea Nitrogen 12 mg/dL (9-20); Calcium 8.9 mg/dL (8.4-10.2); Carbon Dioxide 33 mmol/L (22-30); Chloride 103 mmol/L (98-107); Estimated CRCL calculation 130 ml/min; Estimated Glomerular Filt Rate > 60; Glucose 114 mg/dL (65-110); Phosphorus 4.3 mg/dL (2.5-4.5); Potassium 3.2 mmol/L (3.4-5.0); Sodium 143 mmol/L (137-145)
[2024-02-06 07:26] LABS: Anisocytosis 1+; Hypochromasia 1+; Platelet Estimate Decreased (Adequate); Schistocytes None Seen
[2024-02-06 09:57] VITALS: PULSE 88
[2024-02-06] MEDS: APIXABAN 5 MG TABLET PO ×2 (09:57→16:36)
[2024-02-06] MEDS: amLODIPine BESYLATE 5 MG TABLET 10 MG PO (09:57)
[2024-02-06] MEDS: LINACLOTIDE 72 MCG CAPSULE PO (09:57)
[2024-02-06] MEDS: carvediloL 12.5 MG TABLET PO ×2 (09:57→21:22)
[2024-02-06] MEDS: SENNOSIDES 8.6 MG TABLET 17.2 MG PO (09:57)
[2024-02-06] MEDS: MIRABEGRON 50 MG ER TABLET PO (09:58)
[2024-02-06] MEDS: GABAPENTIN 300 MG CAPSULE 600 MG PO ×2 (09:58→21:23)
[2024-02-06] MEDS: TOLTERODINE TARTRATE 2 MG TABLET PO ×2 (09:58→21:22)
[2024-02-06] MEDS: polyethylene glycoL 3350 17 GM POWD.PACK PO (09:58)
[2024-02-06] MEDS: LACTULOSE 20 GM/30 ML UDC 30 GM PO (09:59)
[2024-02-06] MEDS: PANTOPRAZOLE SODIUM IV 40 MG VIAL IV PUSH (10:00)
[2024-02-06] MEDS: POTASSIUM CHLORIDE 20 MEQ PACKET (FOR LIQUID) 40 MEQ PO (10:04)
[2024-02-06] MEDS: LIDOCAINE HCL 2% GEL UROJET 10 ML PKG MUCOUS MEM ×3 (10:47→16:34)
[2024-02-06 14:00] VITALS: BP 140/83; PULSE 86; RESP 18; TEMP 36.9; O2SAT 7
[2024-02-06] MEDS: LIDOCAINE 5% PATCH 2 PATCH TOPICAL (14:01)
[2024-02-06] MEDS: BISACODYL 10 MG SUPPOSITORY RECTAL (14:19)
--- NOTE | 2024-02-06 17:15 | PM.IMPN ---
Progress Note: A&P Assessment and Plan (1) Delirium: Code(s): R41.0 - Disorientation, unspecified Status: Acute Assessment and Plan: Reviewed [facility] medication sheets and see benzodiazepines and muscle relaxants but not narcotics Currently off all opioids here Head CT 01/31 showing no acute process. Consider delirium related to being in ICU and being off scheduled meds. Was on scheduled lorazepam but now prn and was on hold. Also he was off his Elavil and Gabapentin We resumed lorazepam but kept it prn. We continued gabapentin. Can't give Elavil due to interaction with linezolid. Mental status has improved. Continue to advance gabapentin to home dose. No plans for narcotics at this time since he is recovering well Monitor (2) Septic shock: Code(s): A41.9 - Sepsis, unspecified organism; R65.21 - Severe sepsis with septic shock Status: Acute Assessment and Plan: Patient sharan in for nausea and vomiting on 01/27. He was admitted for UTI. Started on Meropenem (stopped 01/29) Patient was transfer to ICU on 01/29 for hypotension refractory to 2 L IV fluid bolus. Right femoral central line was inserted and patient was started on Levophed. Vasopressin was added. UCx growing VRE BCx 01/29 growing MRSA (Lactobacillus was a contaminant) Possible aspiration pneumonia as patient did have an emesis on 01/29 Soul-Cortef added 01/29. Albumin x4 doses. Linezolid started 01/29. 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 Off IV fluids Echo showing no obvious vegetations. Repeat BCx 02/01 NGTD Continue current abx. Stop Zosyn after today (7 days). Linezolid duration per PharmD ID. (3) Acute UTI: Code(s): N39.0 - Urinary tract infection, site not specified Status: Acute Assessment and Plan: As above (4) Chronic back pain: Code(s): M54.9 - Dorsalgia, unspecified; G89.29 - Other chronic pain Status: Acute Assessment and Plan: Patient has chronic back pain. Patient with baclofen pump No persistent bacteremia and back pain less of an issue now so doubt seeding to these areas. Narcotics stopped. Follow (5) Constipation due to opioid therapy: Code(s): K59.03 - Drug induced constipation; T40.2X5A - Adverse effect of other opioids, initial encounter Status: Acute Assessment and Plan: Patient on senna, MiraLax, lactulose at retirement and these were continued Soapsuds enema given with good results. He is having frequent stools but is requesting suppository. He 'knows his body' so will hold Lactulose and give Dulcolax suppository once. Make Dulcolax prn as well. Follow (6) Elevated LFTs: Code(s): R79.89 - Other specified abnormal findings of blood chemistry Status: Acute Assessment and Plan: Elevated LFTs and bilirubin felt related to severe hypotension, decreased perfusion and sepsis causing shock liver RUQ US showed cholelithiasis, gallbladder wall thickening but negative sonographic Veloz sign. CBD is normal. Viral hepatitis panel negative LFTs improved Resolved (7) History of hypertension: Code(s): Z86.79 - Personal history of other diseases of the circulatory system Status: Acute Assessment and Plan: We held all antihypertensives since he was in septic shock requiring vasopressors BP elevated now so we resumed amlodipine and then Coreg. BP stable. (8) Bladder spasms: Code(s): N32.89 - Other specified disorders of bladder Status: Acute Assessment and Plan: Stable. Continue tolterodine, Mirabegron (9) Paraplegia: Code(s): G82.20 - Paraplegia, unspecified Status: Acute Assessment and Plan: Chronic. Routine skin care with frequent turning. (10) Electrolyte imbalance: Code(s): E87.8 - Other disorders of electrolyte and fluid balance, no
[2024-02-06 20:39] VITALS: BP 149/87; PULSE 90; RESP 16; TEMP 36.7; O2SAT 97
[2024-02-06 21:22] VITALS: PULSE 90
[2024-02-06] MEDS: QUEtiapine FUMARATE 25 MG TABLET 50 MG PO (21:23)
[2024-02-06] MEDS: LORazepam (*CRX) 0.5 MG TABLET PO (21:31)
[2024-02-06] MEDS: TIZANIDINE HCL 4 MG TABLET PO (21:31)
[2024-02-07] MEDS: LINEZOLID 600 MG/300 ML 600 MG/300 ML SOLN 200 MG IVPB (05:18)
[2024-02-07 05:44] VITALS: BP 116/74; PULSE 88; RESP 18; TEMP 36.2; O2SAT 93
[2024-02-07 06:41] LABS: Anion Gap 6 mmol/L (4-12); Blood Urea Nitrogen 12 mg/dL (9-20); Calcium 8.1 mg/dL (8.4-10.2); Carbon Dioxide 28 mmol/L (22-30); Chloride 105 mmol/L (98-107); Estimated CRCL calculation 158 ml/min; Estimated Glomerular Filt Rate > 60; Glucose 84 mg/dL (65-110); Potassium 3.4 mmol/L (3.4-5.0); Sodium 139 mmol/L (137-145)
[2024-02-07 08:39] VITALS: PULSE 86
[2024-02-07] MEDS: MIRABEGRON 50 MG ER TABLET PO (08:39)
[2024-02-07] MEDS: TOLTERODINE TARTRATE 2 MG TABLET PO (08:39)
[2024-02-07] MEDS: GABAPENTIN 300 MG CAPSULE 900 MG PO (08:39)
[2024-02-07] MEDS: carvediloL 12.5 MG TABLET PO (08:39)
[2024-02-07] MEDS: LIDOCAINE HCL 2% GEL UROJET 10 ML PKG MUCOUS MEM ×3 (08:40→17:30)
[2024-02-07] MEDS: amLODIPine BESYLATE 5 MG TABLET 10 MG PO (08:40)
[2024-02-07] MEDS: APIXABAN 5 MG TABLET PO ×2 (08:40→17:30)
[2024-02-07] MEDS: LINACLOTIDE 72 MCG CAPSULE PO (08:40)
[2024-02-07] MEDS: PANTOPRAZOLE 40 MG TABLET PO (08:40)
[2024-02-07] MEDS: SENNOSIDES 8.6 MG TABLET 17.2 MG PO ×2 (08:45→17:30)
--- NOTE | 2024-02-07 12:05 | PM.DS ---
DS: Admitting Diagnosis Discharge Date 02/07/24 Admitting Diagnosis Nausea and vomiting DS: Discharge Diagnosis Discharge Diagnosis (1) Delirium: Code(s): R41.0 - Disorientation, unspecified Status: Acute (2) Septic shock: Code(s): A41.9 - Sepsis, unspecified organism; R65.21 - Severe sepsis with septic shock Status: Acute (3) Acute UTI: Code(s): N39.0 - Urinary tract infection, site not specified Status: Acute (4) Chronic back pain: Code(s): M54.9 - Dorsalgia, unspecified; G89.29 - Other chronic pain Status: Acute Assessment and Plan: Patient has chronic back pain. Patient with baclofen pump No persistent bacteremia and back pain less of an issue now so doubt seeding to these areas. Narcotics stopped. Follow (5) Constipation due to opioid therapy: Code(s): K59.03 - Drug induced constipation; T40.2X5A - Adverse effect of other opioids, initial encounter Status: Acute (6) Elevated LFTs: Code(s): R79.89 - Other specified abnormal findings of blood chemistry Status: Acute (7) History of hypertension: Code(s): Z86.79 - Personal history of other diseases of the circulatory system Status: Acute (8) Bladder spasms: Code(s): N32.89 - Other specified disorders of bladder Status: Acute (9) Paraplegia: Code(s): G82.20 - Paraplegia, unspecified Status: Acute (10) Electrolyte imbalance: Code(s): E87.8 - Other disorders of electrolyte and fluid balance, not elsewhere classified Status: Acute (11) History of DVT (deep vein thrombosis): Code(s): Z86.718 - Personal history of other venous thrombosis and embolism Status: Acute DS: Summary Hospital Course Reason for hospitalization: 58yo male with paraplegia, chronic SP catheter, HTN and DVT here for nausea and vomiting. Please see H&P for details. Hospital Course: Patient brought in for nausea and vomiting on 01/27. He was admitted for UTI. He was started on Meropenem (but stopped 01/29). Patient was admitted to the medical floor but transfered to ICU on 01/29 for hypotension refractory to IV fluid. Right femoral central line was inserted and patient was started on Levophed. Vasopressin was added. UCx grew VRE. BCx 01/29 grew MRSA and Lactobacillus. Lactobacillus was felt to be a contaminant. Possible aspiration pneumonia as patient did have emesis on 01/29. Soul-Cortef added 01/29. Albumin x4 doses. Linezolid started 01/29. Unasyn/Cefepime 01/29 then changed to Zosyn starting on 01/30. We were able to wean off Vasopressin and Levophed by 01/31. Stress dose steroids stopped 02/01 and able to come off IV fluids. Echo showing no obvious vegetations. Repeat BCx 02/01 negative. He completed a course of Zosyn. Linezolid for 2 weeks per PharmD ID. Patient with delirium in ICU. Some of his home medications had to be held due to the severity of his illness. Head CT 01/31 showing no acute process. Consider delirium related to being in ICU and/or being off scheduled meds and/or sepsis. He was on scheduled lorazepam at the home but here was prn and was on hold. He was also taken off his Elavil and Gabapentin. We resumed lorazepam but kept it prn and continued gabapentin. We could not give Elavil or Tramadol due to interaction with linezolid. Mental status has improved. Patient was insistent that he was on narcotics but not on [facility] medication list. We had med list resent but still no mention of narcotics. Patient has chronic back pain. Patient does have a baclofen pump. No persistent bacteremia and back pain less of an issue now so doubt seeding to these areas. Patient on senna, MiraLax, lactulose at [facility] and these were continued. Soapsuds enema given with good results. He was having frequent stools but was requesting suppository. He managed his bowel regiment. Patient with elevated LFTs and bilirubin felt related to severe hypotension, decreased perfusi
[2024-02-07] MEDS: LIDOCAINE 5% PATCH 2 PATCH TOPICAL (12:11)
[2024-02-07] MEDS: LORazepam (*CRX) 0.5 MG TABLET PO (12:17)
[2024-02-07] MEDS: TIZANIDINE HCL 4 MG TABLET PO (12:17)
[2024-02-07 14:00] VITALS: BP 129/73; PULSE 86; RESP 16; TEMP 36; O2SAT 94
[2024-02-07 16:51] LABS: SARS-CoV-2 RNA PCR Negative (Negative)
[2024-02-07] MEDS: LINEZOLID 600 MG TABLET PO (18:29)
== END 2024-02-07 19:00 | DRG 466 ==
LOC: ANHED 17:25 → ANH2MED 01-29 00:02 → ANHICU 01-30 16:17 → ANHIMU 02-03 18:01 → ANH3MEDSUR 02-05 17:34
PROVIDERS: Internal Medicine; Student in an Organized Health Care Education/Training Program; Admitting Provider Internal Medicine; Emergency Provider Physician Assistant; PCP Internal Medicine; Visit Provider Internal Medicine
DX: T83.510A Infection and inflammatory reaction due to cystostomy catheter, initial encounter (principal); A41.02 Sepsis due to Methicillin resistant Staphylococcus aureus; R65.21 Severe sepsis with septic shock; T83.020A Displacement of cystostomy catheter, initial encounter; N39.0 Urinary tract infection, site not specified; B95.2 Enterococcus as the cause of diseases classified elsewhere; J69.0 Pneumonitis due to inhalation of food and vomit; J18.9 Pneumonia, unspecified organism; I95.9 Hypotension, unspecified; I10 Essential (primary) hypertension; E83.51 Hypocalcemia; E83.42 Hypomagnesemia; K80.20 Calculus of gallbladder without cholecystitis without obstruction; L89.151 Pressure ulcer of sacral region, stage 1; N32.89 Other specified disorders of bladder; R41.0 Disorientation, unspecified; K59.03 Drug induced constipation; T40.2X5A Adverse effect of other opioids, initial encounter; M54.9 Dorsalgia, unspecified; G89.29 Other chronic pain; G82.20 Paraplegia, unspecified; Z96.89 Presence of other specified functional implants; Z16.21 Resistance to vancomycin; Z11.52 Encounter for screening for COVID-19; Z79.01 Long term (current) use of anticoagulants; Z93.50 Unspecified cystostomy status; Z86.718 Personal history of other venous thrombosis and embolism
CPT/HCPCS: 36415; 36556; 36600; 70450; 71045; 74177; 76705; 80048; 80053; 80074; 80076; 80307; 81001; 82533; 82805; 82948; 83605; 83735; 84100; 84132; 84484; 85025; 85027; 85055; 87040; 87077; 87086; 87088; 87181; 87635; 87641; 92610; 93005; 93306; 96361; 96365; 96367; 96372; 96374; 96375; 99285; A9270; C1751; C9113; G0378; J0290; J0613; J0692; J1170; J1720; J2020; J2185; J2212; J2270; J2310; J2405; J2543; J2550; J3475; J3480; J7030; J7120; P9047; Q9967